=== PATIENT | male | born 1945 | race Caucasian/White ===

== ENCOUNTER 2017-07-18 11:33 | Day surgery (SDC) | payer MEDICARE, OTHER ==
[~2017-07-18] VITALS: Ht 177.8 cm; Wt 103.5 kg
[~2017-07-18 11:33] MED LIST: AMLO10 PO; AMLO5; AMLO5 PO; ARIP20 PO; ASCO500 PO; ASPI81CH; ASPI81CH PO; ASPI81EC; ATOR10; AZIT250 PO; BLOOD PRESSURE MED?; CHOL10002; CHOL10002 PO; DAILY MULTIPLE1 EACH; DIAZ5 PO; FISH1000; FISH1000 PO; FOLI1 PO; HCTZ; KETO10 PO; LAMO25; LAMO25 PO; LEVSOD100; LEVSOD100 PO; LOSA50 PO; MULVIT PO; Norco 10-325 T1 EACH PO; OLAN2.5 PO; OMEP20ER PO; TERA5 PO; TRIAM; VALP250 PO; VICODIN; ZOLP10 PO; ZOLP5 PO; Zofran Odt4 MG SL
== END 2017-07-18 13:40 | disposition home or self-care (01) ==
LOC: ORSCSDS 11:33
PROVIDERS: Internal Medicine Gastroenterology
PROC: 0D758ZZ Dilation of Esophagus, Via Natural or Artificial Opening Endoscopic (ICD-10-PCS; principal; 2017-07-18 13:00)
DX: R13.10 Dysphagia, unspecified (principal); K21.9 Gastro-esophageal reflux disease without esophagitis; I10 Essential (primary) hypertension; K22.2 Esophageal obstruction; E78.5 Hyperlipidemia, unspecified; E03.9 Hypothyroidism, unspecified; Z87.891 Personal history of nicotine dependence; Z79.82 Long term (current) use of aspirin; Z79.899 Other long term (current) drug therapy

== ENCOUNTER 2017-12-25 18:00 | Emergency (ER) | payer MEDICARE, OTHER ==
[~2017-12-25] VITALS: Ht 177.8 cm; Wt 100.2 kg
== END 2017-12-25 19:09 | disposition home or self-care (01) ==
LOC: ER 18:00
DX: S93.401A Sprain of unspecified ligament of right ankle, initial encounter (principal); S90.212A Contusion of left great toe with damage to nail, initial encounter; F31.9 Bipolar disorder, unspecified; I10 Essential (primary) hypertension; Z88.1 Allergy status to other antibiotic agents; Z88.8 Allergy status to other drugs, medicaments and biological substances; Z79.899 Other long term (current) drug therapy; Z79.82 Long term (current) use of aspirin; Z87.891 Personal history of nicotine dependence; W10.9XXA Fall (on) (from) unspecified stairs and steps, initial encounter
CPT/HCPCS: 11740; 73610; 73660; 99283

== ENCOUNTER 2019-08-10 11:52 | Day surgery (SDC) | payer MEDICARE, OTHER ==
[~2019-08-10] VITALS: Ht 177.8 cm; Wt 101.2 kg
--- NOTE | 2019-08-10 14:43 | NUR ---
08/10/19 1443 Martine Urena INSTRUCTED PT. THAT HE MAY HAVE A SORE JAW. PT. WAS COUGHING & OPENED HIS AIRWAY WITH JAW THRUST. PT. DENIED SOB OR SORE JAW AT THIS TIME.
== END 2019-08-10 14:33 | disposition home or self-care (01) ==
LOC: ORSCSDS 11:52
PROVIDERS: Internal Medicine Gastroenterology
PROC: 0D758ZZ Dilation of Esophagus, Via Natural or Artificial Opening Endoscopic (ICD-10-PCS; principal; 2019-08-10 14:30)
DX: R13.10 Dysphagia, unspecified (principal); K22.2 Esophageal obstruction; I10 Essential (primary) hypertension; E11.9 Type 2 diabetes mellitus without complications; E78.5 Hyperlipidemia, unspecified; E03.9 Hypothyroidism, unspecified; G20 Parkinson's disease; Z79.899 Other long term (current) drug therapy; Z87.891 Personal history of nicotine dependence
CPT/HCPCS: 82947; J2704

== ENCOUNTER 2020-09-19 12:28 | Emergency (ER) | payer MEDICARE, OTHER ==
[~2020-09-19] VITALS: Ht 177.8 cm; Wt 99.8 kg
[2020-09-19 12:55] LABS: Source, Urine Clean Catch
[2020-09-19 13:01] LABS: Bilirubin, Urine Neg (Neg); Blood, Urine Neg (Neg); Glucose Qualitative, Urine 2+ (Neg); Ketones, Urine Neg (Neg); Leukocyte Esterase, Urine 1+ (Neg); Nitrite, Urine Neg (Neg); Protein, Urine 2+ (Neg); Urobilinogen, Urine NORM (Normal); pH, Urine 6.5 (5.0-8.0)
[2020-09-19 13:02] LABS: BASOPHILS ABSOLUTE AUTO 0.01 K/mm3 (0.00-0.23); BASOPHILS PERCENT AUTO 0 % (0-2); EOSINOPHILS ABSOLUTE AUTO 0.03 K/mm3 (0.00-0.68); EOSINOPHILS PERCENT AUTO 1 % (0-6); Hematocrit 43.2 % (37.0-53.0); Hemoglobin 14.8 g/dL (13.5-17.5); IMMATURE GRAN ABSOLUTE AUTO 0.01 K/mm3 (0.00-0.10); IMMATURE GRAN PERCENT AUTO 0 % (0-1); LYMPHOCYTES ABSOLUTE AUTO 1.55 K/mm3 (0.84-5.20); LYMPHOCYTES PERCENT AUTO 30 % (21-46); MONOCYTES ABSOLUTE AUTO 0.27 K/mm3 (0.16-1.47); MONOCYTES PERCENT AUTO 5 % (4-13); Mean Corpuscular HGB 29.8 pg (26.0-34.0); Mean Corpuscular HGB Conc 34.3 g/dL (31.5-36.5); Mean Corpuscular Volume 87 fL (80-100); Mean Platelet Volume 9.3 fL (9.1-12.4); NEUTROPHILS ABSOLUTE AUTO 3.37 K/mm3 (1.96-9.15); NEUTROPHILS PERCENT AUTO 64 % (41-73); Platelet Count 207 K/mm3 (150-400); RDW Standard Deviation 40.5 fL (35.1-46.3); Red Blood Cell Count 4.97 M/mm3 (4.30-5.90); White Blood Cell Count 5.24 K/mm3 (4.00-11.30)
[2020-09-19] MEDS ORDERED: BENZ1 (13:10)
[2020-09-19] MEDS ORDERED: AMLO10 PO (13:11)
[2020-09-19 13:13] LABS: Color, Urine Pale Yellow (P-Yellow)
[2020-09-19] MEDS ORDERED: GLIP5 PO (13:13)
[2020-09-19 13:14] LABS: Appearance, Urine Clear (Clear)
[2020-09-19] MEDS ORDERED: NAPR500 (13:16)
[2020-09-19] MEDS ORDERED: ATOR40TA PO (13:16)
[2020-09-19 13:17] LABS: Red Blood Cells, Urine 0-2 /hpf (0-2)
[2020-09-19 13:18] LABS: Bacteria Mod /hpf; Squamous Epithelial Cells Not Seen /hpf (Few)
[2020-09-19 13:20] LABS: Alanine Aminotransfer (ALT/SGP 31 U/L (12-78); Albumin/Globulin Ratio 1.2 (0.8-1.8); Alk Phos 60 U/L (50-136); Anion Gap 6 mmol/L (6-16); Aspartate Aminotrans (AST/SGOT 16 U/L (12-37); Bilirubin, Total 0.5 mg/dL (0.1-1.0); Blood Urea Nitrogen 8 mg/dL (8-24); Bun/Creatinine Ratio 10.1 (12.0-20.0); CO2, Blood 30 mmol/L (21-32); Chloride, Blood 102 mmol/L (98-108); Creatinine, Blood 0.79 mg/dL (0.60-1.20); Globulin, Blood 3.4 g/dL (2.2-4.0); Glomerular Filtration Rate >60 (60-); Glucose, Blood 224 mg/dL (70-99); Sodium, Blood 138 mmol/L (136-145); Total Protein, Blood 7.4 g/dL (6.4-8.2); Troponin I <0.015 ng/mL (0.000-0.040)
[2020-09-19] MEDS ORDERED: OLAN5 PO (13:22)
[2020-09-19] MEDS ORDERED: OLAN10 PO (13:22)
[2020-09-19] MEDS ORDERED: LAMO100 PO ×2 (13:24)
[2020-09-19] MEDS ORDERED: BENZ1 PO (13:26)
[2020-09-19 13:51] LABS: Magnesium, Blood 2.1 mg/dL (1.6-2.4); Thyroid Stimulating Hormone 1.11 uIU/mL (0.360-4.800)
== END 2020-09-19 16:42 | disposition home or self-care (01) ==
LOC: ER 12:28
PROVIDERS: Emergency Medicine; Physician Assistant
DX: R53.1 Weakness (principal); I10 Essential (primary) hypertension; Z88.1 Allergy status to other antibiotic agents; Z88.8 Allergy status to other drugs, medicaments and biological substances; Z79.899 Other long term (current) drug therapy; Z87.891 Personal history of nicotine dependence
CPT/HCPCS: 70450; 80053; 81001; 82947; 83735; 83880; 84443; 84484; 85025; 87086; 93005; 93010; 99285-25

== ENCOUNTER 2020-09-29 09:11 | Day surgery (SDC) | payer MEDICARE, OTHER ==
[~2020-09-29] VITALS: Ht 177.8 cm; Wt 95.6 kg
[~2020-09-29 09:11] MED LIST changes: +ATOR40TA PO; +BENZ1; +BENZ1 PO; +GLIP5 PO; +LAMO100 PO; +NAPR500; +OLAN10 PO; +OLAN5 PO
--- NOTE | 2020-09-29 09:45 | NUR ---
09/29/20 0945 Martine Urena ONE ATTEMPT BY RN IN RH UNSUCCESSFUL ONE SUCCESSFUL BY RN IN RAC PT TOW
== END 2020-09-29 11:05 | disposition home or self-care (01) ==
LOC: ORSCSDS 09:11
DX: R13.10 Dysphagia, unspecified (principal); K20.90 Esophagitis, unspecified without bleeding; K22.2 Esophageal obstruction; K29.70 Gastritis, unspecified, without bleeding; I10 Essential (primary) hypertension; E03.9 Hypothyroidism, unspecified; E11.9 Type 2 diabetes mellitus without complications; Z79.899 Other long term (current) drug therapy
CPT/HCPCS: 82947; 88305; 88342; J2704; J7120

== ENCOUNTER 2021-06-12 21:51 | Inpatient (IN) | payer OTHER, MEDICARE ==
[~2021-06-12] VITALS: Ht 177.8 cm; Wt 93.0 kg
[~2021-06-12 21:51] MED LIST changes: -ATOR40TA PO; -LAMO100 PO; -OLAN5 PO
[2021-06-12 22:42] LABS: BASOPHILS ABSOLUTE AUTO 0.01 K/mm3 (0.00-0.23); BASOPHILS PERCENT AUTO 0 % (0-2); EOSINOPHILS PERCENT AUTO 0 % (0-6); Hematocrit 43.9 % (37.0-53.0); Hemoglobin 15.1 g/dL (13.5-17.5); IMMATURE GRAN ABSOLUTE AUTO 0.01 K/mm3 (0.00-0.10); IMMATURE GRAN PERCENT AUTO 0 % (0-1); LYMPHOCYTES ABSOLUTE AUTO 0.85 K/mm3 (0.84-5.20); LYMPHOCYTES PERCENT AUTO 11 % (21-46); MONOCYTES ABSOLUTE AUTO 0.72 K/mm3 (0.16-1.47); MONOCYTES PERCENT AUTO 10 % (4-13); Mean Corpuscular HGB 29.5 pg (26.0-34.0); Mean Corpuscular HGB Conc 34.4 g/dL (31.5-36.5); Mean Corpuscular Volume 86 fL (80-100); Mean Platelet Volume 9.4 fL (9.1-12.4); NEUTROPHILS ABSOLUTE AUTO 5.93 K/mm3 (1.96-9.15); NEUTROPHILS PERCENT AUTO 79 % (41-73); Platelet Count 167 K/mm3 (150-400); RDW Coefficient Variation 13.1 % (11.7-14.2); RDW Standard Deviation 40.7 fL (35.1-46.3); Red Blood Cell Count 5.11 M/mm3 (4.30-5.90); White Blood Cell Count 7.52 K/mm3 (4.00-11.30)
[2021-06-12 23:06] LABS: Magnesium, Blood 2.3 mg/dL (1.6-2.4)
[2021-06-12 23:07] LABS: Alanine Aminotransfer (ALT/SGP 119 U/L (12-78); Albumin, Blood 3.8 g/dL (3.4-5.0); Albumin/Globulin Ratio 1.1 (0.8-1.8); Alk Phos 60 U/L (50-136); Anion Gap 8 mmol/L (6-16); Aspartate Aminotrans (AST/SGOT 534 U/L (12-37); Bilirubin, Total 0.6 mg/dL (0.1-1.0); Blood Urea Nitrogen 18 mg/dL (8-24); Bun/Creatinine Ratio 19.4 (12.0-20.0); CO2, Blood 28 mmol/L (21-32); Calcium, Blood 8.7 mg/dL (8.5-10.1); Chloride, Blood 102 mmol/L (98-108); Creatinine, Blood 0.93 mg/dL (0.60-1.20); Globulin, Blood 3.5 g/dL (2.2-4.0); Glomerular Filtration Rate >60 (60-); Glucose, Blood 130 mg/dL (70-99); Potassium, Blood 3.7 mmol/L (3.5-5.5); Sodium, Blood 138 mmol/L (136-145); Total Protein, Blood 7.3 g/dL (6.4-8.2)
[2021-06-12 23:24] LABS: Troponin I 0.632 ng/mL (0.000-0.040)
[2021-06-12 23:58] LABS: Creatine Kinase MB 73.2 ng/mL (0.0-3.6)
[2021-06-13 00:06] LABS: Source, Urine Voided
[2021-06-13 00:17] LABS: Bilirubin, Urine Neg (Neg); Blood, Urine 5+ (Neg); Glucose Qualitative, Urine Neg (Neg); Ketones, Urine 4+ (Neg); Leukocyte Esterase, Urine 1+ (Neg); Nitrite, Urine Neg (Neg); Protein, Urine 3+ (Neg); Urobilinogen, Urine NORM (Normal)
[2021-06-13 00:26] LABS: CHOL/HDL RATIO 1.9; Cholesterol 109 mg/dL (50-200); Ethanol (Alcohol), Blood, Med <3 mg/dL; HDL Cholesterol 57 mg/dL (>39); LDL/HDL RATIO 0.6; Low Density Lipoprotein Chol 35 mg/dL (0-110); Triglycerides 85 mg/dL (30-160); Very Low Density Lipoprot Chol 17 mg/dL (6-32)
[2021-06-13 00:29] LABS: Appearance, Urine Cloudy (Clear); Color, Urine Brown (P-Yellow)
[2021-06-13 00:30] LABS: Amorphous Mod (0-Heavy); Bacteria Few /hpf; Mucus Light (0-Heavy); Squamous Epithelial Cells Not Seen /hpf (Few); White Blood Cells, Urine 0-2 /hpf (0-5)
[2021-06-13 00:31] LABS: WBC Cast 0-2 /lpf (0)
[2021-06-13 00:37] LABS: U Amphetamine Screen Not Detected; U Barbituate Screen Not Detected; U Benzodiazapine Screen DETECTED; U Buprenorphine Screen Not Detected; U Cannabinoids Screen Not Detected; U Cocaine Screen Not Detected; U Methadone Screen Not Detected; U Methamphetamine Screen Not Detected; U Opiates Screen Not Detected; U Oxycodone Screen Not Detected; U Phencyclidine Screen Not Detected; U Propoxyphene Screen Not Detected
[2021-06-13 01:07] LABS: CPK Creatine Kinase >20000 U/L (39-308); Creatine Kinase MB Index Unable to Calculate (0.0-4.0)
[2021-06-13 02:09] LABS: Influenza A, PCR NEGATIVE (NEGATIVE); Influenza B, PCR NEGATIVE (NEGATIVE); Resp Syncytial Virus, PCR NEGATIVE (NEGATIVE)
[2021-06-13 02:11] LABS: SARS-Cov-2 (COVID-19) PCR, MMC POSITIVE (NEGATIVE)
--- NOTE | 2021-06-13 03:36 | NUR ---
PATIENT ARRIVED ON UNIT AT 0100, ALERT AND ORIENTATED A LITTLE SLOW TO RESPONDS WITH HARD OF HEARING, FACE IS TANA AND RASH LIKE DOWN TO NECK AND CHEST, WARM TO TOUCH NO FEBRILE, BRUISING ON BILATERAL KNEES RELATED TO FALL AT HOME, PLACED ON TELEMETRY, ADMISSION ASSESSMENT OBTAINED, PATIENT WAS FOUND TO BE COVID POSITIVE AND PLACE ON PRECAUTIONS. WILL CONTINUE TO MONITOR.
[2021-06-13 04:55] LABS: BASOPHILS ABSOLUTE AUTO 0.02 K/mm3 (0.00-0.23); BASOPHILS PERCENT AUTO 0 % (0-2); EOSINOPHILS ABSOLUTE AUTO 0.16 K/mm3 (0.00-0.68); EOSINOPHILS PERCENT AUTO 3 % (0-6); Hematocrit 40.4 % (37.0-53.0); Hemoglobin 13.7 g/dL (13.5-17.5); IMMATURE GRAN ABSOLUTE AUTO 0.01 K/mm3 (0.00-0.10); IMMATURE GRAN PERCENT AUTO 0 % (0-1); LYMPHOCYTES ABSOLUTE AUTO 1.55 K/mm3 (0.84-5.20); LYMPHOCYTES PERCENT AUTO 25 % (21-46); MONOCYTES ABSOLUTE AUTO 0.71 K/mm3 (0.16-1.47); MONOCYTES PERCENT AUTO 11 % (4-13); Mean Corpuscular HGB 29.1 pg (26.0-34.0); Mean Corpuscular HGB Conc 33.9 g/dL (31.5-36.5); Mean Corpuscular Volume 86 fL (80-100); Mean Platelet Volume 9.3 fL (9.1-12.4); NEUTROPHILS ABSOLUTE AUTO 3.88 K/mm3 (1.96-9.15); NEUTROPHILS PERCENT AUTO 61 % (41-73); Platelet Count 155 K/mm3 (150-400); RDW Standard Deviation 40.4 fL (35.1-46.3); White Blood Cell Count 6.33 K/mm3 (4.00-11.30)
[2021-06-13 05:13] LABS: Alanine Aminotransfer (ALT/SGP 124 U/L (12-78); Albumin, Blood 3.1 g/dL (3.4-5.0); Alk Phos 50 U/L (50-136); Anion Gap 5 mmol/L (6-16); Aspartate Aminotrans (AST/SGOT 552 U/L (12-37); Bilirubin, Total 0.5 mg/dL (0.1-1.0); Blood Urea Nitrogen 20 mg/dL (8-24); Bun/Creatinine Ratio 21.8 (12.0-20.0); CO2, Blood 29 mmol/L (21-32); Calcium, Blood 8.3 mg/dL (8.5-10.1); Chloride, Blood 106 mmol/L (98-108); Creatinine, Blood 0.92 mg/dL (0.60-1.20); Globulin, Blood 3.2 g/dL (2.2-4.0); Glomerular Filtration Rate >60 (60-); Glucose, Blood 102 mg/dL (70-99); Potassium, Blood 3.6 mmol/L (3.5-5.5); Sodium, Blood 140 mmol/L (136-145); Total Protein, Blood 6.3 g/dL (6.4-8.2)
--- NOTE | 2021-06-13 09:29 | NUR ---
CARE ASSUMPTION THIS RN ASSUMED CARE FROM GLENDA PELAYO. PATIENT IS A/OX4. VSS. TELE SR WITH PAC 80. PATIENT REPORTS NO CHEST PAIN, PAIN, OR SOB. LUNGS CLEAR AND DIM. SCABS, AND BRUISES SCATTERED T/O. CALL LIGHT WITHIN REACH AND BED IN LOWEST POSITION. MARTEL CATH DRAINING WITH GRAVITY. WILL CONTINUE TO MONITOR AND PROVIDE CARE
--- NOTE | 2021-06-13 14:15 | NUR ---
ECHOCARDIOGRAM COMPLETE
--- NOTE | 2021-06-13 14:19 | NUR ---
ECHOCARDIOGRAM COMPLETE
--- NOTE | 2021-06-13 14:20 | NUR ---
ECHOCARDIOGRAM COMPLETE
--- NOTE | 2021-06-13 18:00 | NUR ---
SHIFT SUMMARY PATIENT IS A/OX4. VSS. SPO2 >90% ON RA. PATIENT WORKED WITH PT TODAY. PATIENT ON MEDICAL FLOOR, AND IS SUPPOSED TO BE DISCHARGED TOMORROW. PATIENT TO EITHER CALL OR BRING IN PATIENT MEDICATION LIST, SO WE CAN RECONCILE THE MED LIST. PATIENT REPORTS NO PAIN, CHEST PAIN, OR SHORTNESS OF BREATH. SON, KEYANNA, CALLED AND STATED THAT THE PATIENT IS VERY CO-DEPEDENT TO HIS FOR CARE, AND THAT THE PATIENT WILL HAVE MENTAL HEALTH RELAPSES WHEN NOT TAKING MEDICATION, A PICK PACK WORKER ORDER IS IN TO HELP WITH DISCHARGE AND CARE AT HOME. NO ACUTE CHANGES. BED IN LOWEST POSITION AND CALL LIGHT WITHIN REACH. WILL CONTINUE TO MONITOR AND PROVIDE CARE.
[2021-06-14 04:16] LABS: Alanine Aminotransfer (ALT/SGP 135 U/L (12-78); Albumin, Blood 2.9 g/dL (3.4-5.0); Albumin/Globulin Ratio 0.9 (0.8-1.8); Alk Phos 43 U/L (50-136); Anion Gap 8 mmol/L (6-16); Aspartate Aminotrans (AST/SGOT 513 U/L (12-37); Bilirubin, Total 0.4 mg/dL (0.1-1.0); Blood Urea Nitrogen 14 mg/dL (8-24); Bun/Creatinine Ratio 17.7 (12.0-20.0); CO2, Blood 27 mmol/L (21-32); Chloride, Blood 104 mmol/L (98-108); Creatine Kinase MB 13.1 ng/mL (0.0-3.6); Creatinine, Blood 0.79 mg/dL (0.60-1.20); Globulin, Blood 3.1 g/dL (2.2-4.0); Glomerular Filtration Rate >60 (60-); Glucose, Blood 108 mg/dL (70-99); Magnesium, Blood 1.8 mg/dL (1.6-2.4); Phosphorus, Blood 2.3 mg/dL (2.5-4.9); Potassium, Blood 3.6 mmol/L (3.5-5.5); Sodium, Blood 139 mmol/L (136-145)
--- NOTE | 2021-06-14 04:49 | NUR ---
CALL PLACED TO HOSPITALIST RE: TEMP 101.9. PER ORDER, CALL WHEN AM LAB CREATININE AVAILABLE. ICE PACKS PLACED. GITA LUNA
[2021-06-14 05:39] LABS: CPK Creatine Kinase >20000 U/L (39-308); Creatine Kinase MB Index Unable to Calculate (0.0-4.0)
[2021-06-14 09:09] LABS: HBSAG SCREEN Negative (Negative); HEP A AB, IGM Negative (Negative); HEP B CORE AB, IGM Negative (Negative); HEP C VIRUS AB 0.1 (0.0-0.9)
--- NOTE | 2021-06-14 09:27 | NUR ---
CARE ASSUMPTION THIS RN ASSUMED CARE AT 0700. PATIENT IS A/OX4. VSS. TELE SR. PATIENT REPORTS NO CHEST PAIN, PAIN, OR SHORTNESS OF BREATH. PATIENT IS INTERMITTENTLY INCONTINENT, BEDSIDE URINAL CLOSE FOR PATIENT TO USE. MD BURDEN INTO SEE PATIENT THIS AM, CONTINUING WITH PLAN OF CARE. CALL LIGHT WITHIN REACH AND BED IN LOWEST POSITION. WILL CONTINUE TO MONITOR AND PROVIDE CARE.
--- NOTE | 2021-06-14 10:45 | NUR ---
FALL PATIENT CALLED FOR ASSISTANCE, AND WHEN CHARLES ANSWERED THE CALL LIGHT SHE FOUND HIM SITTING ON THE FLOOR AND CALLED FOR ME. WHEN I ARRIVED THE PATIENT WAS SITTING ON THE FLOOR BY THE BED IN NO DISTRESS. THE PATIENT STATED THAT HE COULDN'T REACH HIS CALL LIGHT, AND TRIED TO REACH IT FROM THE BED BUT COULDN'T. HE THEN SAID HE THROW HIS LEGS UP TO TRY TO GET OUT OF BED, BUT COULDN'T, AND THEN DECIDED TO SCOOT HIMSELF OFF THE BED. THE PATIENT STATED HE SCOOTED HIS LEGS OVER TO THE SIDE OF THE BED, AND THEN SCOOTED HIS BOTTOM ONTO THE GROUND. HE STATED HE THEN TRIED TO GET HIMSELF UP, BUT WAS UNABLE TO, SO THEN CALLED FOR HELP. THIS RN AND HELPED TO ASSIST THE PATIENT BACK INTO BED. THIS RN PROVIDED EDUCATION ON USING HIS CALL LIGHT AND SHOWED HOW IT IS WRAPPED AROUND THE BED, SO HE CAN PULL IT BACK IF IT FALLS WITH THE CORD. THE BED ALARM IS ON, AND BED IS IN LOWEST POSITION. VSS. PATIENT COMPLAINED OF NO PAIN, AND THIS RN DIDN'T SEE ANY BRUISES OR REDNESS WHEN ASSESSING THE PATIENTS SKIN. MD SHANNON NOTIFED OF THE INCINDENT. WILL CONTINUE TO MONITOR AND PROVIDE CARE.
--- NOTE | 2021-06-14 16:44 | NUR ---
SHIFT SUMMARY PATIENT IS A/OX4. VSS. PATIENT HAS A LOW GRADE FEVER AND MD BURDEN IS AWARE. PATIENT REPORTS NO PAIN, CHEST PAIN, OR SHORTNESS OF BREATH. SEE PERVIOUS NOTE FOR PATIENTS INCIDENT THAT OCCURED EARLIER IN THE DAY. PATIENT BED ALARM ON AND IN LOWEST POSITION. CALL LIGHT WITHIN REACH. NO ACUTE CHANGES. WILL CONTINUE TO MONITOR AND PROVIDE CARE UNTIL HAND OFF WITH NEXT SHIFT.
[2021-06-15 04:49] LABS: Alanine Aminotransfer (ALT/SGP 139 U/L (12-78); Albumin, Blood 2.8 g/dL (3.4-5.0); Alk Phos 41 U/L (50-136); Anion Gap 9 mmol/L (6-16); Aspartate Aminotrans (AST/SGOT 447 U/L (12-37); Bilirubin, Total 0.4 mg/dL (0.1-1.0); Blood Urea Nitrogen 10 mg/dL (8-24); Bun/Creatinine Ratio 11.9 (12.0-20.0); CO2, Blood 27 mmol/L (21-32); Calcium, Blood 7.7 mg/dL (8.5-10.1); Chloride, Blood 103 mmol/L (98-108); Creatine Kinase MB 5.2 ng/mL (0.0-3.6); Creatinine, Blood 0.84 mg/dL (0.60-1.20); Globulin, Blood 2.8 g/dL (2.2-4.0); Glomerular Filtration Rate >60 (60-); Glucose, Blood 90 mg/dL (70-99); Magnesium, Blood 1.7 mg/dL (1.6-2.4); Phosphorus, Blood 3.2 mg/dL (2.5-4.9); Potassium, Blood 3.6 mmol/L (3.5-5.5); Sodium, Blood 139 mmol/L (136-145); Total Protein, Blood 5.6 g/dL (6.4-8.2)
--- NOTE | 2021-06-15 05:26 | NUR ---
SHIFT SUMMARY NO ACUTE CHANGES THIS SHIFT. PT A&OX4. SP02>90% ON RA. PT C/O OF DRY COUGH. TELEMETRY READS NSR W/ 1ST DEGREE BLOCK. HR 80'S-90'S. PT USED URINAL IN BED. NO BM THIS SHIFT. FLUIDS INFUSED PER EMAR. PT SLEPT OFF AND ON T/O NIGHT. CALL LIGHT IN REACH.
[2021-06-15 06:30] LABS: CPK Creatine Kinase >20000 U/L (39-308); Creatine Kinase MB Index Unable to Calculate (0.0-4.0)
[2021-06-15] MEDS ORDERED: MAGCIT300 PO (10:20)
--- NOTE | 2021-06-15 12:00 | NUR ---
AM AND TRANFER NOTE PT A&Ox4; FORGETFUL AT TIMES. PT RESTING IN BED. ASSIST WITH URINAL. PT DENIES PAIN, CHEST PAIN/PRESSURE, SOB, NAUSEA AND DIZZINESS. REPORTS OCCASIONAL NONPRODUCTIVE COUGHT. ELEVATED TEMP NOTED. OTHER VSS. NO OTHER ACUTE CHANGES. REPORT GIVEN TO GITA SWANN ON MEDICAL. PT TRANSFERED TO ROOM 302 AT APPROX 1037.
--- NOTE | 2021-06-15 18:14 | NUR ---
SHIFT SUMMARY PATIENT TRANSFERRED FROM PCU AT 1030. MEDICATED X1 WITH TYLENOL FOR FEVER. PATIENT DENIES NAUSEA AND SHORTNESS OF BREATH. PATIENT IS A SBA TO THE BSC. PATIENT IS ABLE TO USE THE URINAL INDEPENDENTLY. PATIENT IS A&O X3, WITH SOME CONFUSION. PATIENT IS EASILY REDIRECTED. PATIENT IS EATING AND DRINKING WELL. PATIENT IS ON ROOM AIR. PATIENT IS PLEASANT AND COOPERATIVE WITH CARE.
--- NOTE | 2021-06-16 00:39 | NUR ---
CALLED HOSPITALIST INFORMED HIM THAT CT OF HEAD RESULTS ARE NOT IN. I DID ASK IF HE WANTED SCHEDULED HEPARIN HELD. HE CONFIRMED HE WANTED IT HELD
--- NOTE | 2021-06-16 04:36 | NUR ---
SHIFT SUMMARY ADMITTED FOR ELEVATED TROPONIN. FULL CODE. ENHANCED PRECAUTIONS FOR COVID+. IV ANTIBIOTICS ARE SCHEDULED. TELEMETRY IN PLACE. HEPARIN IS SCHEDULED. HE DID FALL THIS SHIFT. CT SCAN OF HEAD DID NOT SHOW INJURY. BED ALARM IS ACTIVE. 1/2 NS INFUSING @ 150 ML/HR.
[2021-06-16 06:31] LABS: Alanine Aminotransfer (ALT/SGP 155 U/L (12-78); Albumin/Globulin Ratio 1.1 (0.8-1.8); Alk Phos 42 U/L (50-136); Anion Gap 9 mmol/L (6-16); Aspartate Aminotrans (AST/SGOT 517 U/L (12-37); Bilirubin, Total 0.4 mg/dL (0.1-1.0); Blood Urea Nitrogen 10 mg/dL (8-24); Bun/Creatinine Ratio 12.7 (12.0-20.0); CO2, Blood 28 mmol/L (21-32); Chloride, Blood 102 mmol/L (98-108); Creatine Kinase MB 10.6 ng/mL (0.0-3.6); Creatinine, Blood 0.79 mg/dL (0.60-1.20); Globulin, Blood 2.8 g/dL (2.2-4.0); Glomerular Filtration Rate >60 (60-); Glucose, Blood 96 mg/dL (70-99); Magnesium, Blood 1.7 mg/dL (1.6-2.4); Phosphorus, Blood 3.3 mg/dL (2.5-4.9); Potassium, Blood 3.4 mmol/L (3.5-5.5); Sodium, Blood 139 mmol/L (136-145); Total Protein, Blood 5.8 g/dL (6.4-8.2)
[2021-06-16 07:29] LABS: CPK Creatine Kinase 17552 U/L (39-308); Creatine Kinase MB Index 0.1 (0.0-4.0)
--- NOTE | 2021-06-16 18:38 | NUR ---
PT WALKED WITH PT TODAY. AMBULATES WELL TO THE BATHROOM WITH STAFF ASSISTANCE.TREATED PAIN PER EMAR.NO ACUTE CHANGES.BED/CHAIR ALARM ON, CALL LIGHT WITHIN REACH, BED LOWEST POSITION.HEALTH MANAGER WILL CONTINUE TO MONITOR
--- NOTE | 2021-06-17 04:45 | NUR ---
SHIFT SUMMARY 75 YR m ADMITTED ON 06/13/21 FOR ELEVATED TROPONIN LEVEL AND COVID POSITIVE. HE IS FULL CODE. HE IS IMPULSIVE ABOUT GETTING OUT OF BED AND CHAIR WITHOUT ASKING FOR HELP AND ALARMS SHOULD BE ON AT ALL TIMES. IV FLUIDS INFUSING PER ORDERS. PT HAD LOW GRADE FEVER TODAY AND WAS GIVEN TYLENOL PRN PER AUG. TEMP WENT FROM 102. TO 100.7 AFTER ADMIN OF TYLENOL. TELE IS NSR AT 89. PT WAS ABLE TO START TOMOZAPAM TODAY THIS WAS A REGULAR HOME MED FOR HIM.
[2021-06-17 06:46] LABS: Alanine Aminotransfer (ALT/SGP 158 U/L (12-78); Albumin, Blood 2.7 g/dL (3.4-5.0); Alk Phos 36 U/L (50-136); Anion Gap 11 mmol/L (6-16); Aspartate Aminotrans (AST/SGOT 433 U/L (12-37); Bilirubin, Total 0.4 mg/dL (0.1-1.0); Blood Urea Nitrogen 9 mg/dL (8-24); Bun/Creatinine Ratio 11.1 (12.0-20.0); CO2, Blood 26 mmol/L (21-32); CPK Creatine Kinase 10161 U/L (39-308); Calcium, Blood 7.9 mg/dL (8.5-10.1); Chloride, Blood 100 mmol/L (98-108); Creatinine, Blood 0.81 mg/dL (0.60-1.20); Globulin, Blood 2.7 g/dL (2.2-4.0); Glomerular Filtration Rate >60 (60-); Glucose, Blood 95 mg/dL (70-99); Potassium, Blood 3.4 mmol/L (3.5-5.5); Sodium, Blood 137 mmol/L (136-145); Total Protein, Blood 5.4 g/dL (6.4-8.2)
--- NOTE | 2021-06-17 09:14 | NUR ---
AROUND 08, I WALKED TO THE ROOM TO GIVE PT MED. FOUND PT ON THE FLOOR-BUTTOCKS, LOWER BACK ON THE FLOOR, HANDS HOLDING THE SIDE OF THE BED AND UPPER BODY UP WELL. CALLED FOR STAFF ASSISTANCE-CHARGE NURSE CAME TO THE ROOM, PT DENIES FALL. HE SAID HE GOT UP AND GOT WEAK SO HE HELPED HIMSELF DOWN TO THE FLOOR. PT STATED HE DID NOT HIT HIS HEAD. VITALS TAKEN, PERFORMED NEURO CHECK, HUNG PT BACK TO IVF. PT SITTING IN CHAIR EATING/CHAIR ALARM ON. PT DENIES PAIN. CALL PLACED TO [facility]OCK[facility] PROVIDER [phone] QING GALINDO. NO ORDER RECIEVED. PROVIDER AGREES TO ADMINISTER ALL MEDS AT THIS TIME AND HE WILL COME SEE THE PATIENT. ATTEMPTED TO CALL SPOUSE TWICE. LEFT VM. I WILL TRY THE DAUGHTER NUMBER. NO ACUTE CHANGES NOTED. WILL CONTINUE TO MONITOR ORDER GIVEN. PROVIDER AGREES TO ADMINISTER
--- NOTE | 2021-06-17 11:31 | NUR ---
CALL PLACED TO PT DAUGHTER TWICE ABOUT FALL EARLIER TODAY 837. NO ANSWER.LEFT VOICEMAIL.
--- NOTE | 2021-06-17 18:18 | NUR ---
PATIENT HAD A FALL THIS MORNING. A/O X2-3 BUT CAN BECOME VERY CONFUSED AT TIMES. PT DOES NOT CALL APPROPRIATELY. FREQUENT SAFETY ROUNDINGS,ASSESSED PAIN FREQUENTLY. FALL PRECAUTIONS ACTIVATED. NON SKID SOCKS, BED LOWEST POSITION. CHAIR/BED ALARM ON. ROOM FREE OF CLUTTER. SUPERVISED AMBULATION. PATIENT DENIES PAIN FOR SHIFT. NO SIGNS OF DISTRESS. NO ACUTE CHANGES.
[2021-06-17] MEDS ORDERED: OMEP20ER PO (18:34)
[2021-06-17] MEDS ORDERED: LEVSOD100 PO (18:34)
[2021-06-17] MEDS ORDERED: LOSA50 PO (18:34)
[2021-06-17] MEDS ORDERED: FOLI1 PO (18:35)
[2021-06-17] MEDS ORDERED: OLAN5 PO (18:35)
[2021-06-17] MEDS ORDERED: TEMA30 PO (18:35)
[2021-06-17] MEDS ORDERED: Hytrin2 MG PO (18:36)
[2021-06-17] MEDS ORDERED: GABA300 PO ×2 (18:36)
[2021-06-17] MEDS ORDERED: ATOR40TA PO (18:37)
[2021-06-17] MEDS ORDERED: AMLO10 PO (18:37)
[2021-06-17] MEDS ORDERED: LAMO100 PO ×2 (18:37)
--- NOTE | 2021-06-17 22:40 | NUR ---
PT CLIMBING OUT OF BED. PT URINATING ON THE FLOOR. PT CONFUSED AND UNABLE TO FOLLOW DIRECTIONS WELL. PT PLACED IN FRANCISCA VEST. WILL REEAVALUATE EVERY TWO HOURS PER PROTOCOL.
--- NOTE | 2021-06-18 03:46 | NUR ---
SHIFT SUMMARY PT WAS CONFUSED THIS EVENING, CLIMBING OUT OF BED, URINATING ON THE FLOOR. UNABLE TO FOLLOW DIRECTIONS. PT PLACED IN A FRANCISCA VEST. PT SLEPT MOST OF THE NIGHT. FLUIDS INFUSING, 1/2 NS 100/HR. PT ON TELE, SINUS AT 98. CALL LIGHT WITHIN REACH AND WILL CONTINUE TO MONITOR UNTIL DAY SHIFT TAKES OVER CARE.
[2021-06-18 07:19] LABS: Alanine Aminotransfer (ALT/SGP 233 U/L (12-78); Albumin, Blood 2.8 g/dL (3.4-5.0); Alk Phos 38 U/L (50-136); Anion Gap 9 mmol/L (6-16); Aspartate Aminotrans (AST/SGOT 467 U/L (12-37); Bilirubin, Total 0.6 mg/dL (0.1-1.0); Blood Urea Nitrogen 11 mg/dL (8-24); Bun/Creatinine Ratio 13.7 (12.0-20.0); CO2, Blood 27 mmol/L (21-32); Calcium, Blood 7.8 mg/dL (8.5-10.1); Chloride, Blood 100 mmol/L (98-108); Globulin, Blood 2.7 g/dL (2.2-4.0); Glomerular Filtration Rate >60 (60-); Glucose, Blood 92 mg/dL (70-99); Potassium, Blood 3.7 mmol/L (3.5-5.5); Sodium, Blood 136 mmol/L (136-145); Total Protein, Blood 5.5 g/dL (6.4-8.2)
[2021-06-18 07:21] LABS: CPK Creatine Kinase 7443 U/L (39-308)
--- NOTE | 2021-06-18 18:23 | NUR ---
TREMORS NOTED,PROVIDER NOTIFIED. BASSEM STATES HE WILL PUT NEW ORDER IN FOR PATIENT
--- NOTE | 2021-06-18 19:12 | NUR ---
PT VSS. NO PAIN REPORTED. PT ATTEMPTED TO GET UP WITHOUT CALLING MULTIPLE TIMES. NEEDS TO BE REDIRECTED, REMINDED ALL THE TIMES. REMOVED FRANCISCA TO ASSESS PT. PT TRIED TO GET UP SEVERAL TIMES WHILE I AM IN THE ROOM. PATIENT IS CONFUSED, UNSTEADY.TREMORS NOTED. PROVIDER NOTIFIED. REPORT GIVEN TO CUSTOMER SUPPORT ASSISTANT
--- NOTE | 2021-06-19 04:23 | NUR ---
PATIENT HAS BEEN TREATED A COUPLE TIMES DURING THIS SHIFT FOR ETOH W/D; TREMORS SEEMS PRETTY STRONG. IV ATIVAN AND LIBRIUM ADMINISTERED PER EMAR TO ASSIST WITH EASING THE WITHDRAWL SYMPTOMS. VITALS SLIGHTLY ELEVATED HOWEVER NOTHING TOO WORRISOME. PATIENT WAS DISCONTINUED FROM THE FRANCISCA VEST LAST NIGHT JUST AFTER 1999 AND HAS BEEN DOING WELL THIS SHIFT WITH NOT GETTING OUT OF BED UNASSISTED. BED ALARM ON SAFETY MEASURE. PATIENT IN BED AT THIS TIME WITH CALL LIGHT WITHIN REACH.
[2021-06-19 06:25] LABS: Alanine Aminotransfer (ALT/SGP 260 U/L (12-78); Albumin, Blood 2.7 g/dL (3.4-5.0); Albumin/Globulin Ratio 0.9 (0.8-1.8); Alk Phos 37 U/L (50-136); Anion Gap 10 mmol/L (6-16); Aspartate Aminotrans (AST/SGOT 394 U/L (12-37); Bilirubin, Total 0.9 mg/dL (0.1-1.0); Blood Urea Nitrogen 13 mg/dL (8-24); Bun/Creatinine Ratio 14.9 (12.0-20.0); CO2, Blood 27 mmol/L (21-32); Chloride, Blood 97 mmol/L (98-108); Creatinine, Blood 0.87 mg/dL (0.60-1.20); Globulin, Blood 2.9 g/dL (2.2-4.0); Glomerular Filtration Rate >60 (60-); Glucose, Blood 108 mg/dL (70-99); Potassium, Blood 3.7 mmol/L (3.5-5.5); Sodium, Blood 134 mmol/L (136-145); Total Protein, Blood 5.6 g/dL (6.4-8.2)
[2021-06-19 06:29] LABS: CPK Creatine Kinase 5091 U/L (39-308)
--- NOTE | 2021-06-19 10:23 | NUR ---
Received referral from nurse professional healthcare representative (Adilia Leigh) on 06/17/2021. Patient is to discharge 06/19/2021 with orders for home health and elected [facility]. Contacted patient's (Abimbola Cristobal) at number listed on demographic sheet to further discuss the above. Patient's is agreeable to the above. Discussed homebound status definition with patient's . Patient's verbalized understanding. Discussed what home health is vs what it is not (in home caregivers/housekeeping). Patient's verbalized understanding. Discussed the next steps in the process of an initial assessment to determine frequency of visits. Again patient's verbalized understanding. Offered a chance for patient's to ask questions regarding the above of which there were none. At this time patient has no discharge orders entered. Will continue to monitor and follow for discharge. Talia Sanabria Referral Liaison
--- NOTE | 2021-06-19 13:07 | NUR ---
P LETHARGIC, UNABLE TO KEEP EYES OPEN BEGINNING OF SHIFT. PT RESPONDS, OPENS EYES WHEN CALLING HIS NAME. CHARGE NURSE NOTIFIED. DR SHANNON NOTIFIED. DR SHANNON WILL PUT NEW MED IN . WILL CONTINUE TO MONITOR
--- NOTE | 2021-06-19 13:32 | NUR ---
PT DESAT TO BELOW 90. PUT PT ON 3L NASAL CANULA. PT IS ABLE TO TALK. GAVE PT APPLE SAUCE, HE IS ABLE TO SWALLOW WITHOUT DIFFICULTY. TREMORS ARE STILL PRESENT. VITALS TAKEN. WILL CONTINUE TO MONITOR
--- NOTE | 2021-06-19 14:52 | NUR ---
CALL TO DR SHANNON PT CONTINUES TO BE LETHARGIC. ANSWERS QUESTIONS WHEN ASKED BUT DOESNT OPEN EYES. PT NOW REQUIRES 4L O2 VIA NC TO MAINTAIN SATS 91 TO 93%. VSS. CALLED DR SHANNON TO DISCUSS CONCERNS- NEW ORDERS RECIEVED AND DR MOORE WILL COME EVALUATE PT.
[2021-06-19 16:17] LABS: Hematocrit 35.8 % (37.0-53.0); Hemoglobin 12.3 g/dL (13.5-17.5); Mean Corpuscular HGB 29.6 pg (26.0-34.0); Mean Corpuscular HGB Conc 34.4 g/dL (31.5-36.5); Mean Corpuscular Volume 86 fL (80-100); Mean Platelet Volume 9.5 fL (9.1-12.4); Platelet Count 188 K/mm3 (150-400); RDW Standard Deviation 40.9 fL (35.1-46.3); Red Blood Cell Count 4.16 M/mm3 (4.30-5.90); White Blood Cell Count 4.14 K/mm3 (4.00-11.30)
[2021-06-19 16:37] LABS: BAND PERCENT MAN 4 % (0-8); BASOPHILS PERCENT MAN 0 % (0-2); EOSINOPHILS PERCENT MAN 0 % (0-6); LYMPHOCYTES % ATYPICAL MANUAL 2 % (0-0); LYMPHOCYTES ABSOLUTE MAN 0.95 K/mm3 (0.84-5.20); LYMPHOCYTES PERCENT MAN 21 % (21-46); METAMYELOCYTE ABSOLUTE MAN 0.04 K/mm3 (0.00-0.00); METAMYELOCYTE PERCENT MAN 1 % (0-0); MONOCYTES ABSOLUTE MAN 0.33 K/mm3 (0.16-1.47); MONOCYTES PERCENT MAN 8 % (4-13); NEUTROPHILS ABSOLUTE MAN 2.81 K/mm3 (1.96-9.15); SEG NEUTROPHILS PERCENT MAN 64 % (41-73); TOTAL CELLS COUNTED 100
[2021-06-19 16:39] LABS: Alanine Aminotransfer (ALT/SGP 208 U/L (12-78); Albumin, Blood 2.4 g/dL (3.4-5.0); Albumin/Globulin Ratio 0.8 (0.8-1.8); Alk Phos 32 U/L (50-136); Anion Gap 6 mmol/L (6-16); Aspartate Aminotrans (AST/SGOT 306 U/L (12-37); Bilirubin, Total 0.7 mg/dL (0.1-1.0); Blood Urea Nitrogen 11 mg/dL (8-24); Bun/Creatinine Ratio 13.9 (12.0-20.0); CO2, Blood 27 mmol/L (21-32); Calcium, Blood 7.8 mg/dL (8.5-10.1); Chloride, Blood 99 mmol/L (98-108); Creatinine, Blood 0.79 mg/dL (0.60-1.20); Globulin, Blood 3.2 g/dL (2.2-4.0); Glomerular Filtration Rate >60 (60-); Glucose, Blood 132 mg/dL (70-99); Potassium, Blood 3.6 mmol/L (3.5-5.5); Sodium, Blood 132 mmol/L (136-145); Total Protein, Blood 5.6 g/dL (6.4-8.2)
[2021-06-19 18:00] LABS: Source, Urine Catheter
[2021-06-19 18:03] LABS: Appearance, Urine Clear (Clear); Bilirubin, Urine Neg (Neg); Blood, Urine 4+ (Neg); Color, Urine Yellow (P-Yellow); Glucose Qualitative, Urine Neg (Neg); Ketones, Urine 3+ (Neg); Leukocyte Esterase, Urine Neg (Neg); Nitrite, Urine Neg (Neg); Protein, Urine 2+ (Neg); Urobilinogen, Urine NORM (Normal)
[2021-06-19 18:13] LABS: Bacteria Mod /hpf; Red Blood Cells, Urine Not Seen /hpf (0-2); Squamous Epithelial Cells Not Seen /hpf (Few); White Blood Cells, Urine Rare /hpf (0-5)
--- NOTE | 2021-06-20 03:35 | NUR ---
CV TECH SUMMARY RESTING QUIETLY WITH OCCASIONAL COUGHING EPISODE. HOB REMAINS ELAVATED FOR BREATHING COMFPRT. IV ANTIBIOTICS AND SUCH INFUSING PER AUG - SEE MAR FOR DETAILS. NO C/O PAIN. ISOLATION PRECAUTIONS MAINTIANED. CALL LIGHT IN REACH. CONTINUOUS O2 SATS MAINTAINED IN THE 90'S. WILL CONTINUE TO MONITOR
[2021-06-20 04:45] LABS: BASOPHILS ABSOLUTE AUTO 0.01 K/mm3 (0.00-0.23); BASOPHILS PERCENT AUTO 0 % (0-2); EOSINOPHILS PERCENT AUTO 0 % (0-6); Hematocrit 34.4 % (37.0-53.0); Hemoglobin 11.4 g/dL (13.5-17.5); Mean Corpuscular HGB 28.8 pg (26.0-34.0); Mean Corpuscular HGB Conc 33.1 g/dL (31.5-36.5); Mean Corpuscular Volume 87 fL (80-100); Mean Platelet Volume 9.5 fL (9.1-12.4); Platelet Count 187 K/mm3 (150-400); RDW Coefficient Variation 13.1 % (11.7-14.2); RDW Standard Deviation 41.5 fL (35.1-46.3); Red Blood Cell Count 3.96 M/mm3 (4.30-5.90); White Blood Cell Count 2.26 K/mm3 (4.00-11.30)
[2021-06-20 04:47] LABS: IMMATURE GRAN ABSOLUTE AUTO 0.04 K/mm3 (0.00-0.10); IMMATURE GRAN PERCENT AUTO 2 % (0-1); LYMPHOCYTES ABSOLUTE AUTO 0.47 K/mm3 (0.84-5.20); LYMPHOCYTES PERCENT AUTO 21 % (21-46); MONOCYTES ABSOLUTE AUTO 0.17 K/mm3 (0.16-1.47); MONOCYTES PERCENT AUTO 8 % (4-13); NEUTROPHILS ABSOLUTE AUTO 1.57 K/mm3 (1.96-9.15); NEUTROPHILS PERCENT AUTO 70 % (41-73)
[2021-06-20 05:17] LABS: Albumin, Blood 2.1 g/dL (3.4-5.0); Anion Gap 8 mmol/L (6-16); Blood Urea Nitrogen 16 mg/dL (8-24); Bun/Creatinine Ratio 17.6 (12.0-20.0); CO2, Blood 28 mmol/L (21-32); Calcium, Blood 7.5 mg/dL (8.5-10.1); Chloride, Blood 98 mmol/L (98-108); Creatinine, Blood 0.91 mg/dL (0.60-1.20); Glomerular Filtration Rate >60 (60-); Glucose, Blood 195 mg/dL (70-99); Phosphorus, Blood 3.5 mg/dL (2.5-4.9); Potassium, Blood 3.8 mmol/L (3.5-5.5); Sodium, Blood 134 mmol/L (136-145)
[2021-06-20 06:03] LABS: CPK Creatine Kinase 2585 U/L (39-308)
--- NOTE | 2021-06-20 17:53 | NUR ---
NO PAIN REPORTED. PT REMAINS ON OXYGEN 3L NC SATTING IN THE 90'S.VSS. NO ACUTE CHANGES. NO SIGNS OF DISTRESS. NO TREMORS.PT VISITED TODAY AND HE WAS VERY HAPPY TI SEE HER. PT CALLED APPROPRIETLY TODAY. SAFETY ROUDING, CALL LIGHT WITHIN REACH,BED LOWEST POSITION, BED ALARM ON
--- NOTE | 2021-06-21 04:31 | NUR ---
PATIENT IS A&O TO PERSON AND PLACE AND SITUATION AT TIME. FORGETS LIMITATIONS AND FREQUENTLY REMOVES O2. MILDLY CONFUSED. TOLERATED MEDICATIONS WELL. O2 WAS TITRATED TO 4L/NC TO MAINTAIN SAT OF 88% AND GREATER. VITALS REVIEWED WILL CONTINUE TO MONITOR.
[2021-06-21 06:22] LABS: BASOPHILS PERCENT AUTO 0 % (0-2); EOSINOPHILS PERCENT AUTO 0 % (0-6); Hematocrit 34.5 % (37.0-53.0); Hemoglobin 11.4 g/dL (13.5-17.5); Mean Corpuscular HGB 28.9 pg (26.0-34.0); Mean Corpuscular Volume 88 fL (80-100); Mean Platelet Volume 9.4 fL (9.1-12.4); Platelet Count 245 K/mm3 (150-400); RDW Coefficient Variation 13.2 % (11.7-14.2); RDW Standard Deviation 42.5 fL (35.1-46.3); Red Blood Cell Count 3.94 M/mm3 (4.30-5.90); White Blood Cell Count 6.05 K/mm3 (4.00-11.30)
[2021-06-21 06:25] LABS: IMMATURE GRAN ABSOLUTE AUTO 0.04 K/mm3 (0.00-0.10); IMMATURE GRAN PERCENT AUTO 1 % (0-1); LYMPHOCYTES PERCENT AUTO 15 % (21-46); MONOCYTES ABSOLUTE AUTO 0.55 K/mm3 (0.16-1.47); MONOCYTES PERCENT AUTO 9 % (4-13); NEUTROPHILS ABSOLUTE AUTO 4.56 K/mm3 (1.96-9.15); NEUTROPHILS PERCENT AUTO 75 % (41-73)
[2021-06-21 06:50] LABS: Albumin, Blood 2.3 g/dL (3.4-5.0); Anion Gap 6 mmol/L (6-16); Blood Urea Nitrogen 17 mg/dL (8-24); Bun/Creatinine Ratio 20.3 (12.0-20.0); CO2, Blood 29 mmol/L (21-32); Calcium, Blood 7.8 mg/dL (8.5-10.1); Chloride, Blood 105 mmol/L (98-108); Creatinine, Blood 0.84 mg/dL (0.60-1.20); Glomerular Filtration Rate >60 (60-); Glucose, Blood 192 mg/dL (70-99); Magnesium, Blood 2.3 mg/dL (1.6-2.4); Phosphorus, Blood 2.9 mg/dL (2.5-4.9); Potassium, Blood 3.9 mmol/L (3.5-5.5); Sodium, Blood 140 mmol/L (136-145)
--- NOTE | 2021-06-21 18:35 | NUR ---
SHIFT SUMMARY PATIENT DENIES PAIN, NAUSEA, AND SHORTNESS OF BREATH AT REST. PATIENT IS ON 4L VIA N/C. PATIENT IS MAINTAINING SATS ABOVE 90%. PATIENT DOES DESAT WITH ACTIVITY. PATIENT SLEPT MOST OF SHIFT. PATIENT VISITED IN AFTERNOON. PATIENT IS EATING AND DRINKING WELL. PATIENT IS PLEASANTLY CONFUSED BUT COOPERATIVE AND EASILY REDIRECTED.
[2021-06-22 05:12] LABS: Hematocrit 35.3 % (37.0-53.0); Hemoglobin 11.7 g/dL (13.5-17.5); Mean Corpuscular HGB 29.5 pg (26.0-34.0); Mean Corpuscular HGB Conc 33.1 g/dL (31.5-36.5); Mean Corpuscular Volume 89 fL (80-100); Mean Platelet Volume 9.7 fL (9.1-12.4); Platelet Count 308 K/mm3 (150-400); RDW Coefficient Variation 13.3 % (11.7-14.2); RDW Standard Deviation 43.8 fL (35.1-46.3); Red Blood Cell Count 3.96 M/mm3 (4.30-5.90); White Blood Cell Count 8.41 K/mm3 (4.00-11.30)
[2021-06-22 06:24] LABS: BAND PERCENT MAN 2 % (0-8); BASOPHILS PERCENT MAN 0 % (0-2); EOSINOPHILS PERCENT MAN 0 % (0-6); LYMPHOCYTES ABSOLUTE MAN 0.67 K/mm3 (0.84-5.20); LYMPHOCYTES PERCENT MAN 8 % (21-46); MONOCYTES ABSOLUTE MAN 0.67 K/mm3 (0.16-1.47); MONOCYTES PERCENT MAN 8 % (4-13); NEUTROPHILS ABSOLUTE MAN 7.06 K/mm3 (1.96-9.15); SEG NEUTROPHILS PERCENT MAN 82 % (41-73); TOTAL CELLS COUNTED 100
[2021-06-22 06:29] LABS: Albumin, Blood 2.4 g/dL (3.4-5.0); Anion Gap 6 mmol/L (6-16); Blood Urea Nitrogen 19 mg/dL (8-24); Bun/Creatinine Ratio 22.1 (12.0-20.0); CO2, Blood 30 mmol/L (21-32); Chloride, Blood 105 mmol/L (98-108); Creatinine, Blood 0.86 mg/dL (0.60-1.20); Glomerular Filtration Rate >60 (60-); Glucose, Blood 199 mg/dL (70-99); Magnesium, Blood 2.2 mg/dL (1.6-2.4); Potassium, Blood 4.4 mmol/L (3.5-5.5); Sodium, Blood 141 mmol/L (136-145)
--- NOTE | 2021-06-22 17:27 | NUR ---
SHIFT SUMMARY 75 Y MALE ADMITTED FOR ELEVATED TOPNIN AND RHABDOMYOLYSIS AFTER BEING FOUND DOWN AT HOME. PT IS ALSO COVID POSITIVE AND REQUIRING 3L VIA N/C TO MAINTAIN SATS >90 WITH FREQUENT DESATES WITH ACTIVITYPT APPEARS YOUNGER THAN STATED AGE AND FOR THIS NURSE HAS BEEN A&O, PLEASANT AND COOPERATIVE WITH CARE. THIS AM PT WAS VERY WEAK AND DIFFICULT TO MOVE IN BED FOR CARE AND UNABLE TO DO MUCH WITH PT/OT. LATER TODAY PT WAS UP WITH MINIMAL ASST WITH OT AND THEN FOUND UP AMB IN ROOM IND BY RN WITH CHAIR ALARM ACTIVATED. PT UP TO BATHROOM FOR BM AND THEN SBA WITH FWW BY RN TO BED. REMINDED PT TO USE CALL LIGHT AND WAIT FOR ASSISTANCE TO GET UP IN ROOM. PT ACKNOWLEDGES FREQUENT FALLS AT HOME AND VERBALIZED UNDERSTANDIN AND AGREES TO USE CALL LIGHT. PT RETURNED TO BED, BED IN LOWEST POSITION, BED ALARM INITIATED AND CALL LIGHT WITHIN REACH. PT HAS O IV ACCESS AND MD HAS OK'D TO LEAVE OUT AND TRANSITION TO ALL ORAL MEDS. D/C PLANNING PENDING DETERMINATION OF LEVEL OF CARE FOR SAFE D/C. NO OTHER CHANGES TO REPORT THIS SHIFT.
[2021-06-23 04:39] LABS: BASOPHILS ABSOLUTE AUTO 0.02 K/mm3 (0.00-0.23); BASOPHILS PERCENT AUTO 0 % (0-2); EOSINOPHILS PERCENT AUTO 0 % (0-6); Hematocrit 36.5 % (37.0-53.0); Hemoglobin 11.9 g/dL (13.5-17.5); IMMATURE GRAN PERCENT AUTO 1 % (0-1); LYMPHOCYTES PERCENT AUTO 18 % (21-46); MONOCYTES ABSOLUTE AUTO 0.23 K/mm3 (0.16-1.47); MONOCYTES PERCENT AUTO 3 % (4-13); Mean Corpuscular HGB 28.7 pg (26.0-34.0); Mean Corpuscular HGB Conc 32.6 g/dL (31.5-36.5); Mean Corpuscular Volume 88 fL (80-100); Mean Platelet Volume 9.2 fL (9.1-12.4); NEUTROPHILS ABSOLUTE AUTO 7.12 K/mm3 (1.96-9.15); NEUTROPHILS PERCENT AUTO 79 % (41-73); NRBC ABSOLUTE 0.03 K/mm3 (0.00-0.02); NRBC Auto 0.3 /100 WBC (0.0-0.2); Platelet Count 331 K/mm3 (150-400); RDW Coefficient Variation 13.3 % (11.7-14.2); RDW Standard Deviation 43.3 fL (35.1-46.3); Red Blood Cell Count 4.14 M/mm3 (4.30-5.90); White Blood Cell Count 9.07 K/mm3 (4.00-11.30)
[2021-06-23 05:04] LABS: Albumin, Blood 2.5 g/dL (3.4-5.0); Anion Gap 6 mmol/L (6-16); Blood Urea Nitrogen 16 mg/dL (8-24); Bun/Creatinine Ratio 20.3 (12.0-20.0); CO2, Blood 31 mmol/L (21-32); Calcium, Blood 8.2 mg/dL (8.5-10.1); Chloride, Blood 103 mmol/L (98-108); Creatinine, Blood 0.79 mg/dL (0.60-1.20); Glomerular Filtration Rate >60 (60-); Glucose, Blood 131 mg/dL (70-99); Magnesium, Blood 1.9 mg/dL (1.6-2.4); Phosphorus, Blood 2.9 mg/dL (2.5-4.9); Potassium, Blood 3.9 mmol/L (3.5-5.5); Sodium, Blood 140 mmol/L (136-145)
--- NOTE | 2021-06-23 05:51 | NUR ---
PATIENT HAS NOT BEEN DIRECTABLE THIS SHIFT. O2 NEED HAS INCREASED DUE TO PATIENT BREATHING SHALLOW AND NOT TAKING DEEP BREATHS. HOLDING BREATHE AT TIMES. RT PLACED PATIENT ON HI-XANDER NC @8L TO MAINTAIN SAT ABOVE 90%. PATIENT ALSO WAS RESISTIVE TO CARE WOULD NOT HELP TURN AND PUSHED AGAINST STAFF. CALL LIGHT IN REACH BED IN LOWEST POSITON.
--- NOTE | 2021-06-23 13:00 | NUR ---
HUMIDITY APPLIED TO HIGH FLOW OXYGEN BY RT THIS MORNING AND O2 DECREASED TO 7L/M. SATS REMAINED IN THE HIGH 80'S TO LOW 90'S WHILE SITTING IN CHAIR. DECREASED O2 BACK TO 5L/M AND LEFT ROOM. PT IMMEDIATELY DECIDED TO GET UP AND GO TO BATHROOM AND SATS DROPPED TO 80% AND DIDN'T GO UP UNTIL O2 INCREASED BACK TO 9L/M. WAS ABLE TO BRING BACK TO 7L/M AFTER ACTIVITY BUT ANY FURTHER ACTIVITY WITH P.T. REQUIRED O2 TO BE AT 9L/M TO KEEP SATS IN LOW 90'S. NO RESP DISTRESS NOTED OTHER THAN COUGH.
--- NOTE | 2021-06-23 14:53 | NUR ---
Patient was appropriate for discharge home with [facility] on 06/19/2021 but, stated experiencing tremors so was kept for observation and further treatment. Patient's was aware patient would be discharging home with home health and agreeable to this plan on 06/19/2021. Over the weekend, patient and his were advised patient could possibly transfer to a SNF for further care and physical therapy before discharging home. Per PT/OT evalutations, the recommendation has been home with home health. After consulting with Dr. Hinson this morning, he states the patient can discharge with home health services when patient becomes appropriate for discharge. He is currently on 9L of O2. I called to update the patient's , Camilo Cristobal [phone]. This is the first conversation I have had with Abimbola. Abimbola is under the impression that the patient would be going to a SNF. Abimbola became hysterical and angry that the patient's discharge plan would be to come home and receive home health services and home oxygen. She states she feels she will become a slave to him, that he is bipolar, and needs mental health services. She states she is also recovering from Covid, is 10 years older than her , and does not feel she is well enough to care for him and that he will not care for himself. She kept interrupting me and would not allow me to explain that because PT/OT recommended home with home health, that the patient's insurance may not cover a SNF and it may be an out of pocket pay. I attempted to calmly reassure Abimbola that I am here to help and to coordinate his hospital stay. Patient's again interrupted me, raised her voice and stated she will pack her bags, move out and not become a slave if he is discharged home. Then she hung up on me. I decided to call the patient's step-daughter Lo [phone] to update her on the discharge plan in place and if she can try to talk to her mother. I also asked if there is any other friend/family/baptist support in the area and she states that there is not. That the patient has two sons that do live in [place] and would not be willing to help. The patient's daughter asked if the patient is receiving mental health services during his hospital stay, and I stated that that is not why he was admitted. I gave her [employer]'s phone number to reach out to in regards to the social service director her and her mother feel the patient and her mother need.
--- NOTE | 2021-06-23 15:36 | NUR ---
Per physical therapy assessment today at 14:38, [facility]. I called to let patient's step-daughter know. Lo plans to come down from [place] tomorrow to visit her mother, Abimbola.
--- NOTE | 2021-06-23 18:15 | NUR ---
SHIFT SUMMARY UP IN CHAIR TIL AFTER LUNCH. 1 PERSON ASSIST USING A FWW TO BATHROOM BUT WAS PRETTY WEAK. SATS DROP WITH ANY ACTIVITY AND NEEDS AT LEAST 9L/M OTHERWISE MAINTAINS LOW 90'S ON 7L/M. TENTATIVE PLAN FOR PT TO D/C TO SNF WHEN READY.
[2021-06-24 05:19] LABS: BASOPHILS PERCENT AUTO 0 % (0-2); EOSINOPHILS PERCENT AUTO 0 % (0-6); Hematocrit 31.6 % (37.0-53.0); Hemoglobin 10.4 g/dL (13.5-17.5); IMMATURE GRAN ABSOLUTE AUTO 0.09 K/mm3 (0.00-0.10); IMMATURE GRAN PERCENT AUTO 1 % (0-1); LYMPHOCYTES ABSOLUTE AUTO 0.73 K/mm3 (0.84-5.20); LYMPHOCYTES PERCENT AUTO 11 % (21-46); MONOCYTES ABSOLUTE AUTO 0.24 K/mm3 (0.16-1.47); MONOCYTES PERCENT AUTO 4 % (4-13); Mean Corpuscular HGB 29.1 pg (26.0-34.0); Mean Corpuscular HGB Conc 32.9 g/dL (31.5-36.5); Mean Corpuscular Volume 88 fL (80-100); Mean Platelet Volume 9.3 fL (9.1-12.4); NEUTROPHILS ABSOLUTE AUTO 5.69 K/mm3 (1.96-9.15); NEUTROPHILS PERCENT AUTO 84 % (41-73); Platelet Count 326 K/mm3 (150-400); RDW Coefficient Variation 13.2 % (11.7-14.2); RDW Standard Deviation 42.5 fL (35.1-46.3); Red Blood Cell Count 3.58 M/mm3 (4.30-5.90); White Blood Cell Count 6.75 K/mm3 (4.00-11.30)
[2021-06-24 06:03] LABS: Albumin, Blood 2.2 g/dL (3.4-5.0); Anion Gap 6 mmol/L (6-16); Blood Urea Nitrogen 15 mg/dL (8-24); Bun/Creatinine Ratio 18.5 (12.0-20.0); CO2, Blood 31 mmol/L (21-32); Calcium, Blood 8.5 mg/dL (8.5-10.1); Chloride, Blood 100 mmol/L (98-108); Creatinine, Blood 0.81 mg/dL (0.60-1.20); Glomerular Filtration Rate >60 (60-); Glucose, Blood 222 mg/dL (70-99); Magnesium, Blood 2.2 mg/dL (1.6-2.4); Phosphorus, Blood 4.1 mg/dL (2.5-4.9); Potassium, Blood 4.7 mmol/L (3.5-5.5); Sodium, Blood 137 mmol/L (136-145)
--- NOTE | 2021-06-24 06:21 | NUR ---
PATIENT HAD AN EPISODE @ 0455 WHERE HE WAS YELLING OUT FOR HELP AND HIS . HE WAS ALSO ATTEMPTING TO CLIMB OUT THE BED. HE WAS VERY DIFFICULT TO REDIRECT. PATIENTS O2 SAT DROPPED TO 83% AND HE HAD TO BE PLACED ON A NON REBREATHER @ 15LPM. PATIENT BECOMES SONMOLENT AND RIDGIT AND ADLS BECOME EXTREMELY DIFFICULT.
--- NOTE | 2021-06-24 08:28 | NUR ---
Yesterday I faxed a patient packet to [facility] requesting [facility] placement along with the [facility] referral form. I also asked Donnell Redman at [facility] if they currently have openings in their Covid Unit - she stated they do. I received an email this morning that the packet has been received and waiting for a response from Donnell Redman at [facility] on placement acceptance.
--- NOTE | 2021-06-24 15:29 | NUR ---
Spiritual Care Visit. Pt, was alert and sitting up in bed and welcomed my visit. Pt. was in generally good spirits though did seem unsettled by his need to go to a nursing facility for PT. I sought to normalize the pt. experience. Facilitated a life review, and explored pts. personal vel story. Pt. displayed evidence of agreement, encouragement, and gratitude. Prayed with Pt. and he verbalized his encouragement. Pt. became concerned about some discomfort under his arm before I departed. I notified staff to check the pt.
--- NOTE | 2021-06-24 19:32 | NUR ---
SHIFT SUMMARY PT AWAKE AND APPROPRIATE THIS MORNING. TOLERATING 7L/M HIGH FLOW MOST OF REST OF DAY EXCEPT 9L/M WITH ACTIVITY. 1 PERSON ASSIST WITH FWW WITH TRANSFERS TO CHAIR. DENIES SOB. REPORTED FEELING LIKE HE HAD A ROCK UNDER HIS R ARM. CHECKED AND THERE WAS A LARGE APPROX SIZE OF MY HAND TO UPPER R CHEST NEAR AXILLAE. L UPPER CHEST CLOSE TO AXILLAE HAD A SMALL FIRM SPOT. SAID IT WAS PAINFUL WITH PALPATION. TYLENOL GIVEN AND ICE PACK APPLIED FOR COMFORT. MD NOTIFIED.
[2021-06-25 04:52] LABS: BASOPHILS ABSOLUTE AUTO 0.02 K/mm3 (0.00-0.23); BASOPHILS PERCENT AUTO 0 % (0-2); EOSINOPHILS PERCENT AUTO 0 % (0-6); Hematocrit 32.5 % (37.0-53.0); Hemoglobin 10.9 g/dL (13.5-17.5); IMMATURE GRAN ABSOLUTE AUTO 0.14 K/mm3 (0.00-0.10); IMMATURE GRAN PERCENT AUTO 2 % (0-1); LYMPHOCYTES ABSOLUTE AUTO 0.91 K/mm3 (0.84-5.20); LYMPHOCYTES PERCENT AUTO 11 % (21-46); MONOCYTES ABSOLUTE AUTO 0.37 K/mm3 (0.16-1.47); MONOCYTES PERCENT AUTO 4 % (4-13); Mean Corpuscular HGB Conc 33.5 g/dL (31.5-36.5); Mean Corpuscular Volume 86 fL (80-100); Mean Platelet Volume 8.8 fL (9.1-12.4); NEUTROPHILS ABSOLUTE AUTO 7.13 K/mm3 (1.96-9.15); NEUTROPHILS PERCENT AUTO 83 % (41-73); Platelet Count 375 K/mm3 (150-400); RDW Coefficient Variation 13.2 % (11.7-14.2); Red Blood Cell Count 3.76 M/mm3 (4.30-5.90); White Blood Cell Count 8.57 K/mm3 (4.00-11.30)
--- NOTE | 2021-06-25 05:31 | NUR ---
PATIENTS BEHAVIOR WAS MUCH MORE APPROPRIATE THIS SHIFT. A&O X3 NOT DATE AND TIME. PATIENT IS STILL IMPULSIVE AND ATTEMPTED TO GET UP WITHOUT ASSIST. TOOK AND TOLERTED MEDICATIONS WITHOUT ISSUE.
[2021-06-25 06:24] LABS: Albumin, Blood 2.6 g/dL (3.4-5.0); Anion Gap 7 mmol/L (6-16); Blood Urea Nitrogen 15 mg/dL (8-24); Bun/Creatinine Ratio 22.4 (12.0-20.0); CO2, Blood 30 mmol/L (21-32); Calcium, Blood 8.7 mg/dL (8.5-10.1); Chloride, Blood 100 mmol/L (98-108); Creatinine, Blood 0.67 mg/dL (0.60-1.20); Glomerular Filtration Rate >60 (60-); Glucose, Blood 230 mg/dL (70-99); Magnesium, Blood 2.1 mg/dL (1.6-2.4); Potassium, Blood 4.3 mmol/L (3.5-5.5); Sodium, Blood 137 mmol/L (136-145)
--- NOTE | 2021-06-25 17:21 | NUR ---
Donnell Redman with [facility] has not responded to my calls or texts regarding this patient.
--- NOTE | 2021-06-25 17:30 | NUR ---
Spiritual Care visit. Pt. was alert and sitting in chair. Pt. didn't display any acute spiritual distress, but was lonely. Family had been unable to visit. Re-established rapport. Explored issues of vel and belief. Read scripture at the request of pt. Provided theological teaching. Assisted pt. in going to the bathroom. Pt. displayed evidence of encouragement and gratitude. Pt. verbalized appreciation. Prayed with pt.
--- NOTE | 2021-06-25 17:42 | NUR ---
SHIFT SUMMARY PATIENT IS ALERT AND ORIENTED X3-4. PATIENT PLEASENT AND COOPERATIVE WITH CARE THIS SHIFT. PATIENT HAS BEEN TITRATED DOWN TO 5LITERS OXYGEN HIGH FLOW AT REST, MAY NEED ADDITIONAL OXYGEN WITH ACTIVITY. PATIENT IS A 1 PERSON ASSIST TO BATHROOM. PATIENT HAS HAD NO COMPLAINTS OF SOB, NAUSEA OR VOMITTING THIS SHIFT. PATIENT DID REPORT PAIN TO SHOULDER. MEDICATED PER EMAR. NO ACUTE ISSUES THIS SHIFT. VITAL SIGNS REVIEWED. BED IN LOWEST POSITION. CALL LIGHT IN PLACE.
--- NOTE | 2021-06-26 04:53 | NUR ---
PT HAS BEEN RESTING MOST OF SHIFT. HE DOES CONTINUE TO DESAT W/ ANY EXERTION. CRACKLES ARE NOTED IN HIS LUNG BASES BILATERAL. HE IS A 1-2 PA FWW TO BR FOR BOWEL MOVEMENTS, MAY NEED SOME ASSISTANCE W/ THE URINAL. THE PT DID HAVE A SMALL BM THIS SHIFT. HE DOES NEED SOME EDUCATION ON USING THE CALL LIGHT. BED IS IN LOWEST POSITION AND ALARM IS ON.
[2021-06-26 05:01] LABS: BASOPHILS ABSOLUTE AUTO 0.01 K/mm3 (0.00-0.23); BASOPHILS PERCENT AUTO 0 % (0-2); EOSINOPHILS PERCENT AUTO 0 % (0-6); Hematocrit 33.7 % (37.0-53.0); Hemoglobin 11.1 g/dL (13.5-17.5); IMMATURE GRAN ABSOLUTE AUTO 0.21 K/mm3 (0.00-0.10); IMMATURE GRAN PERCENT AUTO 2 % (0-1); LYMPHOCYTES PERCENT AUTO 17 % (21-46); MONOCYTES ABSOLUTE AUTO 0.57 K/mm3 (0.16-1.47); MONOCYTES PERCENT AUTO 5 % (4-13); Mean Corpuscular HGB 29.1 pg (26.0-34.0); Mean Corpuscular HGB Conc 32.9 g/dL (31.5-36.5); Mean Corpuscular Volume 89 fL (80-100); Mean Platelet Volume 9.1 fL (9.1-12.4); NEUTROPHILS ABSOLUTE AUTO 8.04 K/mm3 (1.96-9.15); NEUTROPHILS PERCENT AUTO 76 % (41-73); Platelet Count 474 K/mm3 (150-400); RDW Coefficient Variation 13.4 % (11.7-14.2); RDW Standard Deviation 42.7 fL (35.1-46.3); Red Blood Cell Count 3.81 M/mm3 (4.30-5.90); White Blood Cell Count 10.63 K/mm3 (4.00-11.30)
[2021-06-26 06:09] LABS: Albumin, Blood 2.7 g/dL (3.4-5.0); Anion Gap 11 mmol/L (6-16); Blood Urea Nitrogen 19 mg/dL (8-24); Bun/Creatinine Ratio 25.1 (12.0-20.0); CO2, Blood 27 mmol/L (21-32); Calcium, Blood 9.3 mg/dL (8.5-10.1); Chloride, Blood 100 mmol/L (98-108); Creatinine, Blood 0.76 mg/dL (0.60-1.20); Glomerular Filtration Rate >60 (60-); Glucose, Blood 174 mg/dL (70-99); Phosphorus, Blood 4.1 mg/dL (2.5-4.9); Potassium, Blood 4.6 mmol/L (3.5-5.5); Sodium, Blood 138 mmol/L (136-145)
--- NOTE | 2021-06-26 17:21 | NUR ---
SUMMARY PT SITTING UP IN THE CHAIR AT THE BEDSIDE, PT HAS BEEN PLEASANT AND COOPERATIVE WITH CARE, WORKED WITH PT/OT TODAY, WAS ABLE TO GET UP TO THE SHOWER WITH ASSIST, STARTED THE DAY ON 10L HFNC, IS NOW ON 5L HFNC, SPOUSE HAS BEEN IN TO VISIT, NO COMPLAINTS, VSS, WILL CONT TO MONITOR
--- NOTE | 2021-06-27 04:53 | NUR ---
PT IS A/OX3. FORGETFUL, BUT USING THE CALL LIGHT FOR HIS NEEDS. IF AMBULATING OR EXERTING SELF HE DESATS QUICKLY. AT REST THE PT'S SATS HAVE BEEN IN THE MID 90s ON 5L HFNC. BED IS IN LOWEST POSITION AND CALL LIGHT IS WITHIN REACH.
--- NOTE | 2021-06-27 18:44 | NUR ---
SHIFT SUMMARY; PATIENT REMAINS PLEASANTLY CONFUSED TODAY. HE IS VERY OCD ABOUT BEING AWAKE FOR MEALS AND WANTS TO BE WOKEN UP AND IN CHAIR PRIOR TO AM MEAL. LEE THEN INSISTS ON REMAINING IN CHAIR ENTIRE DAY , HAD ADVISED HIM THAT HE NEEDED TO BE UP FOR MEALS. PATIENT HAD ELEVATED BLOOD SUGAR OF 306 FOR EVENING MEAL WAS GIVEN 8 UNITS OF INSULIN SC. HE IS ABLE TO AMBULATE WITH ONE PERSON ASSIST TO THE BATHROOM AND CALLS APPROPRIATELY WHEN HE HAS TO USE BATHROOM. LEE TAKES HIS PILLS WHOLE WITH APPLESAUCE. PER PLAN IS FOR LEE TO GO TO [facility] FOR REHAB NEXT WEEK. TAYLA WALTER RN
[2021-06-28 04:47] LABS: BASOPHILS ABSOLUTE AUTO 0.01 K/mm3 (0.00-0.23); BASOPHILS PERCENT AUTO 0 % (0-2); EOSINOPHILS ABSOLUTE AUTO 0.01 K/mm3 (0.00-0.68); EOSINOPHILS PERCENT AUTO 0 % (0-6); Hematocrit 30.2 % (37.0-53.0); Hemoglobin 10.2 g/dL (13.5-17.5); IMMATURE GRAN ABSOLUTE AUTO 0.15 K/mm3 (0.00-0.10); IMMATURE GRAN PERCENT AUTO 2 % (0-1); LYMPHOCYTES PERCENT AUTO 18 % (21-46); MONOCYTES PERCENT AUTO 6 % (4-13); Mean Corpuscular HGB 29.2 pg (26.0-34.0); Mean Corpuscular HGB Conc 33.8 g/dL (31.5-36.5); Mean Corpuscular Volume 87 fL (80-100); NEUTROPHILS ABSOLUTE AUTO 4.94 K/mm3 (1.96-9.15); NEUTROPHILS PERCENT AUTO 74 % (41-73); Platelet Count 374 K/mm3 (150-400); RDW Coefficient Variation 13.2 % (11.7-14.2); RDW Standard Deviation 40.5 fL (35.1-46.3); Red Blood Cell Count 3.49 M/mm3 (4.30-5.90); White Blood Cell Count 6.71 K/mm3 (4.00-11.30)
[2021-06-28 05:49] LABS: Anion Gap 7 mmol/L (6-16); Blood Urea Nitrogen 21 mg/dL (8-24); Bun/Creatinine Ratio 30.1 (12.0-20.0); CO2, Blood 30 mmol/L (21-32); Calcium, Blood 8.7 mg/dL (8.5-10.1); Chloride, Blood 100 mmol/L (98-108); Glomerular Filtration Rate >60 (60-); Glucose, Blood 186 mg/dL (70-99); Potassium, Blood 4.6 mmol/L (3.5-5.5); Sodium, Blood 137 mmol/L (136-145)
--- NOTE | 2021-06-28 06:04 | NUR ---
SHIFT SUMMARY AOX3. FORGETFUL & IMPULSIVE @TIMES. VSS. SPO2 >90% ON 6L O2. DENIES SOB @REST. LS DIM c FINE CRACKLES IN BASES. COVID +. E/U RESP. REPORTED PAIN IN KNEES, MEDICATED 1X c TYLENOL & PT ABLE TO REST WELL T/O NIGHT. INCONT OF URINE, CHANGED PRN. PLEASENT & COOPERATIVE c CARE. CALL LIGHT & BED ALARM IN PLACE FOR SAFETY. WCTM UNTIL DAY NURSE ASSUMES CARE.
--- NOTE | 2021-06-28 17:59 | NUR ---
SHIFT SUMMARY; PATIENT MEDICATED FOR ELEVATED CHEM BG THIS AFTERNOON GREATER THAN 300. HE IS UP TO CHAIR FOR ALL MEALS TODAY. HE AMBULATES TO BATHROOM WITH ONE PERSON ASSIST. HE IS AO X 4 TODAY. HE TAKES HIS PILLS WHOLE WITH APPLESAUCE ONE AT A TIME. HE HAS SCABBING NOTED ON VARIOUS LIMBS AND TOP OF HIS HEAD IN STAGES OF HEALING. PATIENT RELATES FROM NUMEROUS FALLS AT HOME. PER PATIENT WILL BE SUBMITTED BY [facility] A/C TECH FOR SNF PLACEMENT ON TUESDAY. TAYLA WALTER RN
[2021-06-29 05:41] LABS: BASOPHILS ABSOLUTE AUTO 0.01 K/mm3 (0.00-0.23); BASOPHILS PERCENT AUTO 0 % (0-2); EOSINOPHILS ABSOLUTE AUTO 0.01 K/mm3 (0.00-0.68); EOSINOPHILS PERCENT AUTO 0 % (0-6); Hematocrit 31.7 % (37.0-53.0); Hemoglobin 10.6 g/dL (13.5-17.5); IMMATURE GRAN PERCENT AUTO 1 % (0-1); LYMPHOCYTES ABSOLUTE AUTO 1.36 K/mm3 (0.84-5.20); LYMPHOCYTES PERCENT AUTO 18 % (21-46); MONOCYTES ABSOLUTE AUTO 0.37 K/mm3 (0.16-1.47); MONOCYTES PERCENT AUTO 5 % (4-13); Mean Corpuscular HGB 29.2 pg (26.0-34.0); Mean Corpuscular HGB Conc 33.4 g/dL (31.5-36.5); Mean Corpuscular Volume 87 fL (80-100); Mean Platelet Volume 8.9 fL (9.1-12.4); NEUTROPHILS ABSOLUTE AUTO 5.56 K/mm3 (1.96-9.15); NEUTROPHILS PERCENT AUTO 75 % (41-73); Platelet Count 349 K/mm3 (150-400); RDW Coefficient Variation 13.2 % (11.7-14.2); RDW Standard Deviation 40.9 fL (35.1-46.3); Red Blood Cell Count 3.63 M/mm3 (4.30-5.90); White Blood Cell Count 7.41 K/mm3 (4.00-11.30)
[2021-06-29 06:18] LABS: Anion Gap 7 mmol/L (6-16); Blood Urea Nitrogen 22 mg/dL (8-24); Bun/Creatinine Ratio 32.2 (12.0-20.0); CO2, Blood 30 mmol/L (21-32); Calcium, Blood 8.6 mg/dL (8.5-10.1); Chloride, Blood 100 mmol/L (98-108); Creatinine, Blood 0.68 mg/dL (0.60-1.20); Glomerular Filtration Rate >60 (60-); Glucose, Blood 164 mg/dL (70-99); Potassium, Blood 4.3 mmol/L (3.5-5.5); Sodium, Blood 137 mmol/L (136-145)
--- NOTE | 2021-06-29 06:32 | NUR ---
SHIFT SUMMARY PT IS A 75 Y/O MALE, ADMITTED FOR ELEVATED TROPONINS AND CP, CURRENTLY POSITIVE FOR COVID AND CURRENTLY AWAITING PLACEMENT. HE IS A&O X 2-3, FORGETFUL AT TIMES, DOES NOT USE THE CALL LIGHT. BED ALARM ON. NO C/O PAIN, NAUSEA OR SOB. VITAL SIGNS STABLE. THIS AM APPROXIMATELY 0415, PT WAS FOUND DOWN AFTER STAFF RESPONDED TO PT'S BED ALARM. PT DENIED ANY PAIN OR INJURIES, NO NEW INJURIES NOTED. VITAL SIGNS STABLE POST FALL. HOSPITALIST DR COOPER NOTIFIED. NO OTHER ACUTE CHANGES IN PT CONDITION NOTED DURING THE NIGHT. WILL CONTINUE TO MONITOR AND TREAT PER EMAR UNTIL HAND OFF TO DAY SHIFT RN.
[2021-06-30 04:56] LABS: BASOPHILS ABSOLUTE AUTO 0.01 K/mm3 (0.00-0.23); BASOPHILS PERCENT AUTO 0 % (0-2); EOSINOPHILS PERCENT AUTO 0 % (0-6); Hematocrit 32.4 % (37.0-53.0); Hemoglobin 10.7 g/dL (13.5-17.5); IMMATURE GRAN ABSOLUTE AUTO 0.07 K/mm3 (0.00-0.10); IMMATURE GRAN PERCENT AUTO 1 % (0-1); LYMPHOCYTES ABSOLUTE AUTO 1.15 K/mm3 (0.84-5.20); LYMPHOCYTES PERCENT AUTO 15 % (21-46); MONOCYTES ABSOLUTE AUTO 0.35 K/mm3 (0.16-1.47); MONOCYTES PERCENT AUTO 5 % (4-13); Mean Corpuscular Volume 88 fL (80-100); NEUTROPHILS ABSOLUTE AUTO 6.01 K/mm3 (1.96-9.15); NEUTROPHILS PERCENT AUTO 79 % (41-73); Platelet Count 338 K/mm3 (150-400); RDW Coefficient Variation 13.2 % (11.7-14.2); RDW Standard Deviation 41.2 fL (35.1-46.3); Red Blood Cell Count 3.69 M/mm3 (4.30-5.90); White Blood Cell Count 7.59 K/mm3 (4.00-11.30)
--- NOTE | 2021-06-30 05:02 | NUR ---
SHIFT SUMMARY AOX4 @BEGINNING OF SHIFT. DENIES PAIN, N/V OR SOB @REST. IS CONFUSED & FORGETFUL WHEN HE WAKES IN MIDDLE OF THE NIGHT, SETS BED ALARM OFF. TITRATED O2 DOWN TO 4L O2, SPO2 >95% WHILE RESTING. SPO2 DROPS c MINIMAL ACTIVITY. LS DIM T/O. E/U RESP. HS CBG @246, PROVIDED COVERAGE PER AUG. CONTINENT c URINAL TONIGHT. PLAN TO POSSIBLY DC TO SNF. CALL LIGHT & BED ALARM IN PLACE. WCTM UNTIL DAY NURSE ASSUMES CARE.
[2021-06-30 05:34] LABS: Anion Gap 5 mmol/L (6-16); Blood Urea Nitrogen 24 mg/dL (8-24); Bun/Creatinine Ratio 32.8 (12.0-20.0); CO2, Blood 31 mmol/L (21-32); CPK Creatine Kinase 107 U/L (39-308); Calcium, Blood 8.8 mg/dL (8.5-10.1); Chloride, Blood 98 mmol/L (98-108); Creatinine, Blood 0.73 mg/dL (0.60-1.20); Glomerular Filtration Rate >60 (60-); Glucose, Blood 174 mg/dL (70-99); Potassium, Blood 4.3 mmol/L (3.5-5.5); Sodium, Blood 134 mmol/L (136-145)
--- NOTE | 2021-06-30 12:07 | NUR ---
Late Entry from 06/29/2021 at 0946: Received notification from [facility] Traffic Officer (Sussy Tavares) that patient now has a SNF recommendation and will be disharging to [facility]. Notified [facility] sales donor recruitment representative (Susan Garcia) of the above. No further interventions required. Talia Sanabria Referral Liaison
--- NOTE | 2021-06-30 18:47 | NUR ---
PT REMAINS A/O, PLEASANT AND COOPERATIVE, O2 NEEDS IMPROVING, REPORTS HE FEELS "STOPPED UP" AND IS REQUESTING A SUPPOSITORY, ORDER OBTAINED, NO ACUTE CHANGES NOTED THIS SHIFT, WILL CONTINUE TO MONITOR AND REPORT TO ONCOMING RN
--- NOTE | 2021-07-01 04:03 | NUR ---
SHIFT SUMMARY NO ACUTE CHANGES THIS SHIFT. VSS. SPO2 >95% ON 3L @REST, SPO2 DROPS TO 80'S c MINIMAL ACTIVITY. LS DIM T/O. E/U RESP. PT REPORTS CONSTIPATION, DAY NURSE GAVE SUPPOSITY @SHIFT CHANGE. PT REPORTS SM HARD STOOL, INFORMED HOSPITALIST & BOWEL CARE ORDERED. CALL LIGHT & BED ALARM IN PLACE FOR SAFETY. PLAN TO POSSIBLY DC TO SNF. WCTM.
[2021-07-01 05:21] LABS: BASOPHILS ABSOLUTE AUTO 0.01 K/mm3 (0.00-0.23); BASOPHILS PERCENT AUTO 0 % (0-2); EOSINOPHILS PERCENT AUTO 0 % (0-6); Hematocrit 32.5 % (37.0-53.0); IMMATURE GRAN ABSOLUTE AUTO 0.06 K/mm3 (0.00-0.10); IMMATURE GRAN PERCENT AUTO 1 % (0-1); LYMPHOCYTES ABSOLUTE AUTO 1.54 K/mm3 (0.84-5.20); LYMPHOCYTES PERCENT AUTO 19 % (21-46); MONOCYTES ABSOLUTE AUTO 0.35 K/mm3 (0.16-1.47); MONOCYTES PERCENT AUTO 4 % (4-13); Mean Corpuscular HGB 29.5 pg (26.0-34.0); Mean Corpuscular HGB Conc 33.8 g/dL (31.5-36.5); Mean Corpuscular Volume 87 fL (80-100); Mean Platelet Volume 8.9 fL (9.1-12.4); NEUTROPHILS ABSOLUTE AUTO 6.19 K/mm3 (1.96-9.15); NEUTROPHILS PERCENT AUTO 76 % (41-73); Platelet Count 315 K/mm3 (150-400); RDW Coefficient Variation 13.2 % (11.7-14.2); RDW Standard Deviation 41.3 fL (35.1-46.3); Red Blood Cell Count 3.73 M/mm3 (4.30-5.90); White Blood Cell Count 8.15 K/mm3 (4.00-11.30)
[2021-07-01 06:02] LABS: Anion Gap 6 mmol/L (6-16); Blood Urea Nitrogen 25 mg/dL (8-24); Bun/Creatinine Ratio 36.3 (12.0-20.0); CO2, Blood 32 mmol/L (21-32); Calcium, Blood 8.6 mg/dL (8.5-10.1); Chloride, Blood 100 mmol/L (98-108); Creatinine, Blood 0.69 mg/dL (0.60-1.20); Glomerular Filtration Rate >60 (60-); Glucose, Blood 145 mg/dL (70-99); Potassium, Blood 4.4 mmol/L (3.5-5.5); Sodium, Blood 138 mmol/L (136-145)
[2021-07-01] MEDS ORDERED: MASOPHEN325 M3 PO (11:44)
[2021-07-01] MEDS ORDERED: C COMPLEX1000 M1 PO (11:44)
[2021-07-01] MEDS ORDERED: FAMO20 PO (11:45)
[2021-07-01] MEDS ORDERED: BISA10S PR (11:45)
[2021-07-01] MEDS ORDERED: DEXA4 PO (11:45)
[2021-07-01] MEDS ORDERED: ENOX40I SC (11:45)
[2021-07-01] MEDS ORDERED: DOCU100 PO (11:45)
[2021-07-01] MEDS ORDERED: HUMALOG KW100 UNIT/1 SC (11:46)
[2021-07-01] MEDS ORDERED: DULCOLAX400 MG/5 M PO (11:47)
[2021-07-01] MEDS ORDERED: OXAYDO5 M1 PO (11:47)
[2021-07-01] MEDS ORDERED: POTA10T PO (11:48)
[2021-07-01] MEDS ORDERED: SENN187 PO (11:48)
[2021-07-01] MEDS ORDERED: Fleet Enema132 ML PR (11:48)
[2021-07-01] MEDS ORDERED: VITAMIN D5000 UNIT PO (11:49)
--- NOTE | 2021-07-01 14:53 | NUR ---
Per Dr. Decker, patient is appropriate for discharge. Patient is now on 3L of O2 at rest and 5L with exertion per patient's nurse and RT. Discharge orders, discharge med rec and PASRR all e-mailed to Donnell Redman with [facility] as well as placed in patient discharge packet. Hard script also placed in patient discharge packet. Discharge packet has been placed in patient's lock box. I have arranged wheelchair transport with [facility] - and notified of Covid contact precautions and )2 needs for transport. ETA for transport is 3:30PM. Dr. Decker, patient's nurse, Yaya, and patient's daughter and have all been notified of transfer and ETA to [facility]. Patient denied barriers to discharge.
--- NOTE | 2021-07-01 15:05 | NUR ---
REPORT CALLED TP [facility] UNIT RN PRIOR TO TRANSFER
--- NOTE | 2021-07-01 15:39 | NUR ---
PT DISCHARGED THE PT TRANSFERED VIA WHEELCHAIR TO [facility], REPORT GIVEN TO THE RN THERE PRIOR TO DISCHARGE. THE PT WAS ON 3L/MIN O2 AT THE TIME OF DC. PT WAS ACCOMPANIED BY [facility]. BELONGINGS RELEASED TO THE PT
--- NOTE | 2021-07-03 01:47 | NUR ---
ON 06/26 THE PT HAD 30 MG OF TAMAZEPAM SCHEDULED AND ONLY 15 MG WAS GIVEN. THE 15 MG TABLET WAS SCANNED TWICE BY NURSING ERROR. THERE IS DOCUMENTATION IN THE EMAR OF THE EVENT.
== END 2021-07-01 15:40 | DRG 177 ==
LOC: ER 21:51 → PCU 06-13 → MEDS 06-15 10:46
PROVIDERS: Emergency Medicine; Family Medicine; Hospitalist; ADMIT Family Medicine
PROC: 8E0ZXY6 Isolation (ICD-10-PCS; principal; 2021-06-13)
PROC: XW033E5 Introduction of Remdesivir Anti-infective into Peripheral Vein, Percutaneous Approach, New Technology Group 5 (ICD-10-PCS; 2021-06-20)
PROC: 3E0DX3Z Introduction of Anti-inflammatory into Mouth and Pharynx, External Approach (ICD-10-PCS; 2021-06-23)
DX: U07.1 COVID-19 (principal); J12.82 Pneumonia due to coronavirus disease 2019; J96.01 Acute respiratory failure with hypoxia; A41.9 Sepsis, unspecified organism; G92.9 Unspecified toxic encephalopathy; M62.82 Rhabdomyolysis; N39.0 Urinary tract infection, site not specified; I10 Essential (primary) hypertension; E11.42 Type 2 diabetes mellitus with diabetic polyneuropathy; E83.51 Hypocalcemia; F31.9 Bipolar disorder, unspecified; E87.6 Hypokalemia; G47.00 Insomnia, unspecified; E78.5 Hyperlipidemia, unspecified; G89.4 Chronic pain syndrome; K76.0 Fatty (change of) liver, not elsewhere classified; Z98.890 Other specified postprocedural states; Z91.041 Radiographic dye allergy status; Z88.1 Allergy status to other antibiotic agents; Z88.8 Allergy status to other drugs, medicaments and biological substances; Z79.899 Other long term (current) drug therapy; Z79.84 Long term (current) use of oral hypoglycemic drugs; E66.9 Obesity, unspecified; G89.29 Other chronic pain; Z87.891 Personal history of nicotine dependence; R74.01 Elevation of levels of liver transaminase levels
CPT/HCPCS: 0241U; 36415; 70450; 71045; 71260; 72125; 73562-LT; 73562-RT; 76705; 80048; 80053; 80061; 80069; 80074; 81001; 82550; 82553; 82947; 83605; 83735; 83880; 84100; 84145; 84484; 85025; 85379; 87040; 87086; 93005; 93010; 93306; 94762; 97110; 97116; 97162; 97166; 97530; 97530-CQ; 97535; 99285-25; A9270; G0480; J0248; J0696; J1100; J1644; J1650; J1815; J1956; J2020; J2060; J2543; J7030; Q9967

== ENCOUNTER → 2021-07-06 | Outpatient (CLI) | payer MEDICARE, OTHER ==
[~2021-07-06] MED LIST changes: +ATOR40TA PO; +BISA10S PR; +C COMPLEX1000 M1 PO; +DEXA4 PO; +DOCU100 PO; +DULCOLAX400 MG/5 M PO; +ENOX40I SC; +FAMO20 PO; +Fleet Enema132 ML PR; +GABA300 PO; +HUMALOG KW100 UNIT/1 SC; +Hytrin2 MG PO; +LAMO100 PO; +MAGCIT300 PO; +MASOPHEN325 M3 PO; +OLAN5 PO; +OXAYDO5 M1 PO; +POTA10T PO; +SENN187 PO; +TEMA30 PO; +VITAMIN D5000 UNIT PO
[2021-07-06 19:14] LABS: BASOPHILS ABSOLUTE AUTO 0.01 K/mm3 (0.00-0.23); BASOPHILS PERCENT AUTO 0 % (0-2); EOSINOPHILS ABSOLUTE AUTO 0.02 K/mm3 (0.00-0.68); EOSINOPHILS PERCENT AUTO 0 % (0-6); Hematocrit 32.9 % (37.0-53.0); IMMATURE GRAN ABSOLUTE AUTO 0.02 K/mm3 (0.00-0.10); IMMATURE GRAN PERCENT AUTO 0 % (0-1); LYMPHOCYTES ABSOLUTE AUTO 0.42 K/mm3 (0.84-5.20); LYMPHOCYTES PERCENT AUTO 6 % (21-46); MONOCYTES ABSOLUTE AUTO 0.25 K/mm3 (0.16-1.47); MONOCYTES PERCENT AUTO 4 % (4-13); Mean Corpuscular HGB 29.5 pg (26.0-34.0); Mean Corpuscular HGB Conc 33.4 g/dL (31.5-36.5); Mean Corpuscular Volume 88 fL (80-100); Mean Platelet Volume 10.4 fL (9.1-12.4); NEUTROPHILS ABSOLUTE AUTO 6.27 K/mm3 (1.96-9.15); NEUTROPHILS PERCENT AUTO 90 % (41-73); Platelet Count 180 K/mm3 (150-400); RDW Coefficient Variation 13.1 % (11.7-14.2); RDW Standard Deviation 41.2 fL (35.1-46.3); Red Blood Cell Count 3.73 M/mm3 (4.30-5.90); White Blood Cell Count 6.99 K/mm3 (4.00-11.30)
[2021-07-06 19:51] LABS: Alanine Aminotransfer (ALT/SGP 38 U/L (12-78); Albumin, Blood 2.5 g/dL (3.4-5.0); Albumin/Globulin Ratio 0.7 (0.8-1.8); Alk Phos 52 U/L (50-136); Anion Gap 5 mmol/L (6-16); Aspartate Aminotrans (AST/SGOT 21 U/L (12-37); Bilirubin, Total 0.5 mg/dL (0.1-1.0); Blood Urea Nitrogen 17 mg/dL (8-24); Bun/Creatinine Ratio 23.1 (12.0-20.0); CO2, Blood 31 mmol/L (21-32); Calcium, Blood 8.2 mg/dL (8.5-10.1); Chloride, Blood 98 mmol/L (98-108); Creatinine, Blood 0.74 mg/dL (0.60-1.20); Globulin, Blood 3.5 g/dL (2.2-4.0); Glomerular Filtration Rate >60 (60-); Glucose, Blood 237 mg/dL (70-99); Potassium, Blood 4.6 mmol/L (3.5-5.5); Sodium, Blood 134 mmol/L (136-145)
== END | disposition home or self-care (01) ==
LOC: EDSTATUS 12:12 → LAB RH 17:17
PROVIDERS: Internal Medicine
DX: U07.1 COVID-19 (principal); I10 Essential (primary) hypertension
CPT/HCPCS: 80053; 85025

== ENCOUNTER → 2021-07-11 | Outpatient (CLI) | payer OTHER, MEDICARE ==
[2021-07-11 11:46] LABS: Source, Urine Clean Catch
[2021-07-11 12:07] LABS: Bilirubin, Urine Neg (Neg); Blood, Urine Neg (Neg); Glucose Qualitative, Urine Neg (Neg); Ketones, Urine Neg (Neg); Leukocyte Esterase, Urine Neg (Neg); Nitrite, Urine Neg (Neg); Protein, Urine 2+ (Neg); Specific Gravity, Urine 1.015 (1.003-1.022); Urobilinogen, Urine 1+ (Normal); pH, Urine 6.5 (5.0-8.0)
[2021-07-11 12:15] LABS: Appearance, Urine Clear (Clear); Color, Urine Pale Yellow (P-Yellow)
[2021-07-11 12:17] LABS: Bacteria Mod /hpf; Red Blood Cells, Urine 0-2 /hpf (0-2); Squamous Epithelial Cells Few /hpf (Few); White Blood Cells, Urine 0-2 /hpf (0-5); Yeast/Fungi Urine Rare /hpf
== END | disposition home or self-care (01) ==
LOC: LAB SHORT 07:50
PROVIDERS: Internal Medicine
DX: N39.0 Urinary tract infection, site not specified (principal)
CPT/HCPCS: 81001; 87077; 87086; 87186

== ENCOUNTER → 2021-10-20 | Outpatient (CLI) | payer MEDICARE, OTHER | END | disposition home or self-care (01) | LOC: LAB SHORT 15:35 → LAB 15:35 | DX: M25.571 Pain in right ankle and joints of right foot (principal) | CPT/HCPCS: 84550 ==

== ENCOUNTER 2022-10-27 01:26 | Emergency (ER) | payer MEDICARE, OTHER ==
[~2022-10-27] VITALS: Ht 177.8 cm; Wt 90.7 kg
[2022-10-27 02:05] LABS: BASOPHILS ABSOLUTE AUTO 0.01 K/mm3 (0.00-0.23); BASOPHILS PERCENT AUTO 0 % (0-2); EOSINOPHILS PERCENT AUTO 0 % (0-6); Hematocrit 35.4 % (37.0-53.0); Hemoglobin 12.2 g/dL (13.5-17.5); IMMATURE GRAN ABSOLUTE AUTO 0.06 K/mm3 (0.00-0.10); IMMATURE GRAN PERCENT AUTO 1 % (0-1); LYMPHOCYTES ABSOLUTE AUTO 0.36 K/mm3 (0.84-5.20); LYMPHOCYTES PERCENT AUTO 5 % (21-46); MONOCYTES ABSOLUTE AUTO 0.81 K/mm3 (0.16-1.47); MONOCYTES PERCENT AUTO 11 % (4-13); Mean Corpuscular HGB 29.8 pg (26.0-34.0); Mean Corpuscular HGB Conc 34.5 g/dL (31.5-36.5); Mean Corpuscular Volume 87 fL (80-100); Mean Platelet Volume 9.3 fL (9.1-12.4); NEUTROPHILS ABSOLUTE AUTO 6.13 K/mm3 (1.96-9.15); NEUTROPHILS PERCENT AUTO 83 % (41-73); Platelet Count 147 K/mm3 (150-400); RDW Coefficient Variation 13.1 % (11.7-14.2); RDW Standard Deviation 41.1 fL (35.1-46.3); Red Blood Cell Count 4.09 M/mm3 (4.30-5.90); White Blood Cell Count 7.37 K/mm3 (4.00-11.30)
[2022-10-27 02:10] LABS: Albumin, Blood 3.5 g/dL (3.4-5.0); Albumin/Globulin Ratio 1.3 (0.8-1.8); Bilirubin, Total 0.5 mg/dL (0.1-1.0); Bun/Creatinine Ratio 15.9 (12.0-20.0); Calcium, Blood 8.3 mg/dL (8.5-10.1); Creatinine, Blood 1.32 mg/dL (0.60-1.20); Globulin, Blood 2.7 g/dL (2.2-4.0); Potassium, Blood 3.4 mmol/L (3.5-5.5); Total Protein, Blood 6.2 g/dL (6.4-8.2)
[2022-10-27 03:05] LABS: Influenza A, PCR NEGATIVE (NEGATIVE); Influenza B, PCR NEGATIVE (NEGATIVE); Resp Syncytial Virus, PCR NEGATIVE (NEGATIVE)
[2022-10-27 03:48] LABS: SARS-Cov-2 (COVID-19) PCR, MMC POSITIVE (NEGATIVE)
[2022-10-27 04:00] VITALS: BP 146/84
== END 2022-10-27 04:30 | disposition home or self-care (01) ==
LOC: ER 01:26
PROVIDERS: Emergency Medicine
DX: U07.1 COVID-19 (principal); S60.222A Contusion of left hand, initial encounter; S00.81XA Abrasion of other part of head, initial encounter; X58.XXXA Exposure to other specified factors, initial encounter; Z87.891 Personal history of nicotine dependence; Z88.8 Allergy status to other drugs, medicaments and biological substances; Z79.899 Other long term (current) drug therapy; Z79.4 Long term (current) use of insulin
CPT/HCPCS: 0241U; 71045; 71046; 80053; 83605; 85025; J7030

== ENCOUNTER → 2024-03-22 | Outpatient (CLI) | payer MEDICARE, OTHER | END | disposition home or self-care (01) | LOC: LAB SHORT 09:51 → LAB 09:51 | DX: R05.8 Other specified cough (principal) | CPT/HCPCS: 87070; 87205 ==

== ENCOUNTER 2024-08-24 02:19 | Emergency (ER) | payer MEDICARE, OTHER ==
[~2024-08-24] VITALS: Ht 177.8 cm; Wt 88.0 kg
[2024-08-24 03:16] LABS: BASOPHILS ABSOLUTE AUTO 0.02 K/mm3 (0.00-0.23); BASOPHILS PERCENT AUTO 0 % (0-2); EOSINOPHILS ABSOLUTE AUTO 0.01 K/mm3 (0.00-0.68); EOSINOPHILS PERCENT AUTO 0 % (0-6); Hematocrit 36.6 % (37.0-53.0); Hemoglobin 12.8 g/dL (13.5-17.5); IMMATURE GRAN ABSOLUTE AUTO 0.02 K/mm3 (0.00-0.10); IMMATURE GRAN PERCENT AUTO 0 % (0-1); LYMPHOCYTES ABSOLUTE AUTO 0.55 K/mm3 (0.84-5.20); LYMPHOCYTES PERCENT AUTO 6 % (21-46); MONOCYTES ABSOLUTE AUTO 0.71 K/mm3 (0.16-1.47); MONOCYTES PERCENT AUTO 8 % (4-13); Mean Corpuscular HGB 30.6 pg (26.0-34.0); Mean Corpuscular Volume 88 fL (80-100); Mean Platelet Volume 8.8 fL (9.1-12.4); NEUTROPHILS ABSOLUTE AUTO 7.65 K/mm3 (1.96-9.15); NEUTROPHILS PERCENT AUTO 86 % (41-73); Platelet Count 154 K/mm3 (150-400); RDW Coefficient Variation 12.5 % (11.7-14.2); Red Blood Cell Count 4.18 M/mm3 (4.30-5.90); White Blood Cell Count 8.96 K/mm3 (4.00-11.30)
[2024-08-24 03:30] VITALS: BP 141/71
[2024-08-24 03:36] LABS: Albumin, Blood 3.8 g/dL (3.4-5.0); Albumin/Globulin Ratio 1.4 (0.8-1.8); Bilirubin, Total 0.9 mg/dL (0.1-1.0); Bun/Creatinine Ratio 15.4 (12.0-20.0); Calcium, Blood 8.8 mg/dL (8.5-10.1); Creatinine, Blood 0.84 mg/dL (0.60-1.20); Globulin, Blood 2.8 g/dL (2.2-4.0); Potassium, Blood 3.5 mmol/L (3.5-5.5); Total Protein, Blood 6.6 g/dL (6.4-8.2)
[2024-08-24 03:55] LABS: Influenza A, PCR NEGATIVE (NEGATIVE); Influenza B, PCR NEGATIVE (NEGATIVE); Resp Syncytial Virus, PCR NEGATIVE (NEGATIVE); SARS-Cov-2 (COVID-19) PCR, MMC NEGATIVE (NEGATIVE)
[2024-08-24] MEDS ORDERED: Lidocaine 4% 1 Patch TOP ONE (04:15)
[2024-08-24] MEDS ORDERED: Acetaminophen 325 MG TABLET PO ONE (04:15)
[2024-08-24 04:34] LABS: Source, Urine Clean Catch
[2024-08-24 04:36] LABS: Bilirubin, Urine Neg (Neg); Blood, Urine 1+ (Neg); Glucose Qualitative, Urine Neg (Neg); Ketones, Urine 3+ (Neg); Leukocyte Esterase, Urine Neg (Neg); Nitrite, Urine Neg (Neg); Protein, Urine 2+ (Neg); Specific Gravity, Urine 1.015 (1.003-1.022); Urobilinogen, Urine NORM (Normal)
[2024-08-24 04:53] LABS: Appearance, Urine Clear (Clear); Color, Urine Yellow (P-Yellow)
[2024-08-24 04:54] LABS: Bacteria Few /hpf; Red Blood Cells, Urine 0-2 /hpf (0-2); Squamous Epithelial Cells Few /hpf (Few); White Blood Cells, Urine 0-2 /hpf (0-5)
[2024-08-24] MEDS ORDERED: NS 1,000 ML IV SCH (05:55)
== END 2024-08-24 10:28 | disposition home or self-care (01) ==
LOC: ER 02:19
PROVIDERS: Emergency Medicine
DX: S16.1XXA Strain of muscle, fascia and tendon at neck level, initial encounter (principal); R50.9 Fever, unspecified; I10 Essential (primary) hypertension; W18.30XA Fall on same level, unspecified, initial encounter; Z87.891 Personal history of nicotine dependence; Z79.899 Other long term (current) drug therapy; Z79.4 Long term (current) use of insulin; Z88.1 Allergy status to other antibiotic agents; Z91.041 Radiographic dye allergy status; Z88.8 Allergy status to other drugs, medicaments and biological substances
CPT/HCPCS: 0241U; 51798; 70450; 71045; 72125; 80053; 81001; 85025; 99285-25; A9270

== ENCOUNTER → 2024-10-03 | Outpatient (CLI) | payer MEDICARE, OTHER | LOC: LAB 16:33 → LAB SHORT 16:33 | DX: R05.8 Other specified cough (principal) | CPT/HCPCS: 87070; 87205 ==

== ENCOUNTER 2025-01-07 05:32 | Emergency (ER) | payer MEDICARE, OTHER ==
[~2025-01-07] VITALS: Ht 177.8 cm; Wt 88.5 kg
[2025-01-07] MEDS ORDERED: ZYRTEC10 M2 PO (07:02)
[2025-01-07] MEDS ORDERED: FLUT.05NI (07:02)
[2025-01-07] MEDS ORDERED: GUAI600T33 PO (07:02)
[2025-01-07] MEDS ORDERED: AZIT250 PO (07:02)
[2025-01-07 07:16] VITALS: BP 172/77
== END 2025-01-07 07:17 | disposition home or self-care (01) ==
LOC: ER 05:32
DX: J02.9 Acute pharyngitis, unspecified (principal); I10 Essential (primary) hypertension; E11.9 Type 2 diabetes mellitus without complications; E78.5 Hyperlipidemia, unspecified; E03.9 Hypothyroidism, unspecified; K21.9 Gastro-esophageal reflux disease without esophagitis; Z87.891 Personal history of nicotine dependence; Z88.1 Allergy status to other antibiotic agents; Z88.8 Allergy status to other drugs, medicaments and biological substances; Z91.041 Radiographic dye allergy status; Z79.890 Hormone replacement therapy; Z79.4 Long term (current) use of insulin; Z79.01 Long term (current) use of anticoagulants; Z79.899 Other long term (current) drug therapy
CPT/HCPCS: 71046; 99283-25

== ENCOUNTER 2025-06-23 10:54 | Observation (INO) | payer MEDICARE, OTHER ==
[~2025-06-23] VITALS: Ht 177.8 cm; Wt 85.5 kg
[~2025-06-23 10:54] MED LIST changes: +FLUT.05NI; +GUAI600T33 PO; +ZYRTEC10 M2 PO
[2025-06-23 11:22] LABS: BASOPHILS ABSOLUTE AUTO 0.02 K/mm3 (0.00-0.23); BASOPHILS PERCENT AUTO 0 % (0-2); EOSINOPHILS ABSOLUTE AUTO 0.09 K/mm3 (0.00-0.68); EOSINOPHILS PERCENT AUTO 2 % (0-6); Hematocrit 41.4 % (37.0-53.0); Hemoglobin 14.1 g/dL (13.5-17.5); IMMATURE GRAN ABSOLUTE AUTO 0.01 K/mm3 (0.00-0.10); IMMATURE GRAN PERCENT AUTO 0 % (0-1); LYMPHOCYTES ABSOLUTE AUTO 1.56 K/mm3 (0.84-5.20); LYMPHOCYTES PERCENT AUTO 29 % (21-46); MONOCYTES ABSOLUTE AUTO 0.30 K/mm3 (0.16-1.47); MONOCYTES PERCENT AUTO 6 % (4-13); Mean Corpuscular HGB Conc 34.1 g/dL (31.5-36.5); Mean Corpuscular Volume 90 fL (80-100); NEUTROPHILS ABSOLUTE AUTO 3.41 K/mm3 (1.96-9.15); NEUTROPHILS PERCENT AUTO 63 % (41-73); NRBC ABSOLUTE 0.00 K/mm3 (0.00-0.02); NRBC Auto 0.0 /100 WBC (0.0-0.2); Platelet Count 147 K/mm3 (150-400); RDW Coefficient Variation 12.6 % (11.7-14.2); RDW Standard Deviation 40.9 fL (35.1-46.3)
[2025-06-23 11:43] LABS: Alanine Aminotransfer (ALT/SGP 51.0 U/L (12-78); Albumin, Blood 3.8 g/dL (3.4-5.0); Albumin/Globulin Ratio 1.2 (0.8-1.8); Anion Gap 6.0 mmol/L (3-11); Aspartate Aminotrans (AST/SGOT 34.0 U/L (12-37); Bilirubin, Total 0.6 mg/dL (0.1-1.0); Blood Urea Nitrogen 10.0 mg/dL (8-24); CO2, Blood 33.0 mmol/L (21-32); Calcium, Blood 9.3 mg/dL (8.5-10.1); Chloride, Blood 103.0 mmol/L (98-108); Creatinine, Blood 0.82 mg/dL (0.60-1.20); Globulin, Blood 3.1 g/dL (2.2-4.0); Glucose, Blood 171.0 mg/dL (70-99); Potassium, Blood 4.2 mmol/L (3.5-5.5); Sodium, Blood 138.0 mmol/L (136-145); Total Protein, Blood 6.9 g/dL (6.4-8.2)
[2025-06-23] MEDS ORDERED: Morphine Sulfate 4 MG/1 ML Injection IV ONE (12:45)
[2025-06-23] MEDS ORDERED: Ondansetron HCl 2 MG / ML 2ML Vial IV ONE (12:50)
[2025-06-23 13:49] LABS: Thyroid Stimulating Hormone 1.99 uIU/mL (0.360-4.800)
[2025-06-23] MEDS ORDERED: Ketorolac Tromethamine 15mg Vial IV ONE (14:00)
[2025-06-23] MEDS ORDERED: Atropine/Scopalam/Hyoscam/PB 5 ML UDC PO ONE (14:00)
[2025-06-23] MEDS ORDERED: FLU VACC TS2025(65UP)/MF59C/PF 45 MCG/0.5 ML SYRINGE IM SCH (15:30)
[2025-06-23] MEDS ORDERED: ATORVASTATIN CA80 M1 PO (15:37)
[2025-06-23] MEDS ORDERED: BUSP5 PO (15:38)
[2025-06-23] MEDS ORDERED: CARDURA2 M1 PO (15:39)
[2025-06-23] MEDS ORDERED: GABA300 PO ×2 (15:41→15:42)
[2025-06-23] MEDS ORDERED: Norco 5-325 MG PO (15:43)
[2025-06-23] MEDS ORDERED: LAMO100 PO ×2 (15:44→15:45)
[2025-06-23] MEDS ORDERED: HYDROcodone 5-APAP 325 TAB PO PRN (15:45)
[2025-06-23] MEDS ORDERED: EUTHYROX100 MCG PO (15:46)
[2025-06-23] MEDS ORDERED: LOSARTAN POTAS100 M1 PO (15:47)
[2025-06-23] MEDS ORDERED: RESTORIL15 M1 PO (15:48)
[2025-06-23 16:47] VITALS: BP 167/107
[2025-06-23 19:40] VITALS: BP 188/71
[2025-06-23 21:43] VITALS: BP 146/55
[2025-06-24 00:06] VITALS: BP 148/72
[2025-06-24 04:23] VITALS: BP 143/64
--- NOTE | 2025-06-24 05:27 | NUR ---
SHIFT SUMMARY: PT IS AOX4, FRIENDLY AND COOPERATIVE. HE AMBULATES INDEPENDENTLY IN THE ROOM WITH NO ISSUES. HE IS NPO AWAITING CARDIAC STRESS TEST SCHEDULED FOR TODAY. HE DENIES PAIN, PRESSURE, OR SOB THIS SHIFT AND COMPLAINS ONLY OF BEING TIRED. HE IS CURRENTLY ASLEEP, BED LOCKED AND IN LOWEST POSITION WITH BEDSIDE TABLE AND CALL LIGHT WITHIN REACH. NO ACUTE EVENTS.
[2025-06-24 05:33] LABS: BASOPHILS ABSOLUTE AUTO 0.03 K/mm3 (0.00-0.23); BASOPHILS PERCENT AUTO 1 % (0-2); EOSINOPHILS ABSOLUTE AUTO 0.21 K/mm3 (0.00-0.68); EOSINOPHILS PERCENT AUTO 3 % (0-6); Hematocrit 39.2 % (37.0-53.0); Hemoglobin 13.3 g/dL (13.5-17.5); IMMATURE GRAN ABSOLUTE AUTO 0.01 K/mm3 (0.00-0.10); IMMATURE GRAN PERCENT AUTO 0 % (0-1); LYMPHOCYTES ABSOLUTE AUTO 2.22 K/mm3 (0.84-5.20); LYMPHOCYTES PERCENT AUTO 35 % (21-46); MONOCYTES ABSOLUTE AUTO 0.46 K/mm3 (0.16-1.47); MONOCYTES PERCENT AUTO 7 % (4-13); Mean Corpuscular HGB Conc 33.9 g/dL (31.5-36.5); Mean Corpuscular Volume 88 fL (80-100); NEUTROPHILS ABSOLUTE AUTO 3.41 K/mm3 (1.96-9.15); NEUTROPHILS PERCENT AUTO 54 % (41-73); NRBC ABSOLUTE 0.00 K/mm3 (0.00-0.02); NRBC Auto 0.0 /100 WBC (0.0-0.2); Platelet Count 158 K/mm3 (150-400); RDW Coefficient Variation 12.6 % (11.7-14.2); RDW Standard Deviation 41.1 fL (35.1-46.3)
[2025-06-24 06:09] LABS: Alanine Aminotransfer (ALT/SGP 42.0 U/L (12-78); Albumin, Blood 3.5 g/dL (3.4-5.0); Albumin/Globulin Ratio 1.2 (0.8-1.8); Anion Gap 8.0 mmol/L (3-11); Aspartate Aminotrans (AST/SGOT 26.0 U/L (12-37); Bilirubin, Total 0.7 mg/dL (0.1-1.0); Blood Urea Nitrogen 12.0 mg/dL (8-24); CO2, Blood 31.0 mmol/L (21-32); Calcium, Blood 8.9 mg/dL (8.5-10.1); Chloride, Blood 104.0 mmol/L (98-108); Creatinine, Blood 0.85 mg/dL (0.60-1.20); Globulin, Blood 2.8 g/dL (2.2-4.0); Glucose, Blood 100.0 mg/dL (70-99); Magnesium, Blood 2.2 mg/dL (1.6-2.4); Phosphorus, Blood 3.7 mg/dL (2.5-4.9); Potassium, Blood 3.8 mmol/L (3.5-5.5); Sodium, Blood 139.0 mmol/L (136-145); Total Protein, Blood 6.3 g/dL (6.4-8.2)
[2025-06-24 07:25] VITALS: BP 160/81
[2025-06-24] MEDS ORDERED: Enoxaparin 40 MG/0.4 ML SYR SC SCH (09:00)
[2025-06-24] MEDS ORDERED: Folic Acid 1 MG TAB PO SCH (09:00)
[2025-06-24 11:46] VITALS: BP 149/77
--- NOTE | 2025-06-24 15:39 | NUR ---
Upon receiving a referral for spiritual care, I visited the patient. PAtient is sitting on EOB and alert. He tells me about the events that led to his admission to the hospital and his gratitude for the great result of his good clinical care. He also talks about [facility]) and how important his vel is especially in challenging circumstances. I provided therapeutic listening and prayer. The patient showed signs of being encouraged in his vel. I will continue to remain available to the patient and family.
[2025-06-24] MEDS ORDERED: ELIQUIS5 M2 PO (17:59)
--- NOTE | 2025-06-24 18:33 | NUR ---
DISCHARGE NOTE PATIENT AND IN THE ROOM WHEN DISCHARGE INSTRUCTIONS WERE GIVEN, MEDICATIONS DISCUSSED IN DETAIL, FOLLOW UP APPOINTMENTS REVIEWED AND INFORMATION HIGHLIGHTED IN PACKET FOR PATIENT. NEW MEDICATION DISCUSSED AND REVIEWED THAT IT WAS FAXED TO [facility], PER PATIENT CHOICE. IV WAS REMOVED BY FIRE EATER, PATIENT DRESSED SELF, PATIENT DENIED QUESTIONS. FAMILY AND FIRE EATER WHEELED PATIENT OUT TO PERSONAL VEHICLE FOR DISCHARGE. PATIENT DID EXPRESS THERE WAS MONEY MISSING FROM [place], BROUGHT [place] IN FROM HOME TODAY, PATIENT STATED MONEY GONE FROM YESTERDAY. DISCUSSED THIS WAS PATIENT, CHARGE NURSE, HOUSE SUP NOTIFIED AND PATIENT ADVOVATE NOTIFIED. NO OTHER CONCERNS.
[2025-06-25] MEDS ORDERED: Potassium Chloride 10 Meq Tablet SA PO SCH (09:00)
[2025-06-25] MEDS ORDERED: Cholecalciferol 1000 Unit Tablet (=25MCG) PO SCH (09:00)
== END 2025-06-24 18:15 | disposition home or self-care (01) ==
LOC: ER 10:54 → MEDS 10:55 → ENPENDDIS 06-24 17:18 → MEDS 06-24 18:15
PROVIDERS: Emergency Medicine; Student in an Organized Health Care Education/Training Program; ADMIT Family Medicine
DX: I48.92 Unspecified atrial flutter (principal); R07.89 Other chest pain; I10 Essential (primary) hypertension; E11.9 Type 2 diabetes mellitus without complications; E78.5 Hyperlipidemia, unspecified; K21.9 Gastro-esophageal reflux disease without esophagitis; E03.9 Hypothyroidism, unspecified; Z88.1 Allergy status to other antibiotic agents; Z88.8 Allergy status to other drugs, medicaments and biological substances; Z87.891 Personal history of nicotine dependence; Z79.899 Other long term (current) drug therapy
CPT/HCPCS: 36415; 71046; 78452; 80053; 83735; 84100; 84439; 84443; 84481; 84484; 85025; 93005; 93010; 93017; 93306; 96374; 96375; 99285-25; A9270; A9500; G0378; J0706; J1885; J2270; J2405; J2785